=== PATIENT | female | born 1985 | race Caucasian/White ===

== ENCOUNTER 2018-09-14 05:27 | Emergency (ER) | payer SELFPAY ==
[~2018-09-14] VITALS: Ht 149.9 cm; Wt 74.8 kg
--- OUTSIDE RECORDS SUMMARY | 2018-09-14 05:33 | XMS REPORT ---
Author Author KAYLA Ojeda Organization [facility] Address [address] [address] Care Team Providers Care Commercial Carpet Installer Name Role Phone KAYLA Ojeda Unavailable PROBLEMS Type Condition ICD9-CM Code [id number] Code Onset Dates Condition Status SNOMED Code Problem Unspecified episodic mood disorder 296.90 Active 560598218 Problem Encounter for long-term (current) use of other medications V58.69 Active 317333003 ALLERGIES No Information ENCOUNTERS Encounter Location Date Diagnosis [facility] [id number] [place] [phone] Jul, [facility] [id number] [place] [phone] Jul, [facility] [id number] [place] [address] Jul, Epigastric abdominal pain R10.13 [facility] [id number] [place] [address] Jul, [facility] [id number] [place] [address] Jul, [facility] [id number] [place] [phone] Nov, [facility] [id number] [place] [phone] Sep, [facility] [id number] [place] [phone] August, [facility] [id number] [place] [phone] Jun, [id number] [facility] [id number] [place] [address] May, [facility] [address] [facility] [id number], [place] [address] Oct, IMMUNIZATIONS No Known Immunizations SOCIAL HISTORY Never Assessed REASON FOR VISIT Refill request PLAN OF CARE VITAL SIGNS MEDICATIONS Unknown Medications RESULTS No Results PROCEDURES No Known procedures INSTRUCTIONS MEDICATIONS ADMINISTERED No Known Medications MEDICAL (GENERAL) HISTORY Type Description Date Medical History Depression Medical History Anxiety Medical History Kidney Stones
--- OUTSIDE RECORDS SUMMARY | 2018-09-14 05:33 | XMS REPORT ---
Author Author KAYLA Ojeda Organization [facility] Address [address] [address] Care Team Providers Care Armed Security Professional Name Role Phone KAYLA Ojeda Unavailable PROBLEMS Type Condition ICD9-CM Code [id number] Code Onset Dates Condition Status SNOMED Code Problem Unspecified episodic mood disorder 296.90 Active 735781606 Problem Encounter for long-term (current) use of other medications V58.69 Active 339916905 ALLERGIES No Information ENCOUNTERS Encounter Location Date Diagnosis [facility] [id number] [place] [address] Jul, [facility] [id number] [place] [address] Jul, [facility] [id number] [place] [address] Jul, Epigastric abdominal pain R10.13 [facility] [id number] [place] [address] Jul, [facility] [id number] [place] [address] Jul, [facility] [id number] [place] [address] Nov, [facility] [id number] [place] [address] Sep, [facility] [id number] [place] [address] August, [facility] [id number] [place] [address] Jun, [address] [facility] [id number] [place] [address] May, [facility] [address] [facility] [id number] [address] Oct, IMMUNIZATIONS No Known Immunizations SOCIAL HISTORY Never Assessed REASON FOR VISIT PLAN OF CARE VITAL SIGNS MEDICATIONS Medication Instructions Dosage Frequency Start Date End Date Duration Status Ciprofloxacin HCl 250 MG Orally every 12 hrs 1 tablet 12h Jul, Jul, 3 day(s) Active RESULTS No Results PROCEDURES No Known procedures INSTRUCTIONS MEDICATIONS ADMINISTERED No Known Medications MEDICAL (GENERAL) HISTORY Type Description Date Medical History Depression Medical History Anxiety Medical History Kidney Stones
--- OUTSIDE RECORDS SUMMARY | 2018-09-14 05:33 | XMS REPORT ---
Author Author Migration, Doctor Organization [facility] Address Unknown Phone Unavailable Care Team Providers Care Flight Deck Officer Name Role Phone Migration, Doctor Unavailable Unavailable PROBLEMS Type Condition ICD9-CM Code [id number] Code Onset Dates Condition Status SNOMED Code Problem Encounter for long-term (current) use of other medications V58.69 Active 625959992 Problem Unspecified episodic mood disorder 296.90 Active [id number] ALLERGIES No Information ENCOUNTERS Encounter Location Date Diagnosis [facility] [id number] [place] [phone] Jul, [facility] [id number] [place] [phone] Jul, [facility] [id number] [place] [phone] Jul, Epigastric abdominal pain R10.13 [facility] [id number] [place] [phone] Jul, [facility] [id number] [place] [phone] Jul, [facility] [address] [address] Nov, [facility] [id number] [place] [phone] Sep, [facility] [address] [id number] [address] August, [facility] [id number] [place] [phone] Jun, [facility] [address] [address] May, [facility] [id number] [place] [address] Oct, IMMUNIZATIONS No Known Immunizations SOCIAL HISTORY Never Assessed REASON FOR VISIT [facility] PLAN OF CARE VITAL SIGNS MEDICATIONS Unknown Medications RESULTS No Results PROCEDURES No Known procedures INSTRUCTIONS MEDICATIONS ADMINISTERED No Known Medications MEDICAL (GENERAL) HISTORY Type Description Date Medical History Depression Medical History Anxiety Medical History Kidney Stones
--- OUTSIDE RECORDS SUMMARY | 2018-09-14 05:34 | XMS REPORT | Continuity of Care Document ---
Author Organization Unknown Address [address] [place] [address] Care Team Providers Care Animal Nutrition Consultant Name Role Phone Unavailable Unavailable Insurance Providers Payer Name Policy Number Subscriber Name Relationship Self-Pay Self-Pay PIERO CHAVEZ Self Advance Directives Directive Response Recorded Date/Time Advance Directive Information: AD INFO NOT OBTAINABLE 12/18/15 12:24pm Chief Complaint and Reason for Visit Reason for Visit ABD PAIN Problems Active Medical Problems Problem Onset Date Recorded Date Status Ureteral calculus Unknown 12/18/15 Active Medications Current Home Medications Medication Dose Units Route Directions Days/Qty Instructions Start Date MEDICATION RECONCILIATION (Medication Reconciliation) 1 EACH EA 1 EACH BY MOUTH ONE TIME ONLY Alprazolam (Xanax) 0.5 MG TABLET 0.5 MG BY MOUTH FOUR TIMES DAILY Citalopram Hydrobromide (Celexa) 40 MG TABLET 40 MG BY MOUTH DAILY Oxycodone 5 MG W/Actm 325 MG (Percocet 5/325) 1 EA UD.TAB 1 TAB BY MOUTH EVERY 4 HOURS NEEDED PRN PAIN 15 12/18/15 Topiramate (Topamax) 25 MG TABLET 25 MG BY MOUTH TWICE DAILY Social History No social history. Hospital Discharge Instructions No hospital discharge instructions. Plan of Care Discharge Date 12/18/15 Disposition HOME/SELF CARE Condition at Discharge Improved Instructions/Education Provided Kidney Stones -- Adult Prescriptions See Medications Section Referrals [facility] - Functional Status No functional status results. Allergies, Adverse Reactions, Alerts Allergen Type Severity Reaction Status Last Updated NO KNOWN DRUG ALLERGIES Allergy Unknown Active 12/18/15 Immunizations Name Date Given Type *Flu Shot: None Historical *Tetanus Shot: Unknown Historical Vital Signs Vital Reading Collection Date/Time Result Blood Pressure 12/18/15 1:35pm 116/73 Patient Temperature 12/18/15 1:35pm 98.1 Temperature Source 12/18/15 9:40am Temporal Respiratory Rate 12/18/15 1:35pm 16 Pulse Rate 12/18/15 1:35pm 78 Bedside Pulse Oximetry 12/18/15 1:35pm 99 Height 12/18/15 9:40am 4 ft 11 in Weight 12/18/15 9:40am 150 lb Body Mass Index 12/18/15 9:40am 30.[address] [address] ED PHYSICIAN DOCUMENTATION Patient Name: PIERO CHAVEZ : 81 Unit #: [id number] Patient's Service Date: 12/18/15 ED Physician: Joseph Louie DO Primary Physician: History of Present Illness General Chief Complaint Abdominal pain Stated Complaint ABD PAIN Time Seen by Provider 1003 Source patient Exam Limitations no limitations History of Present Illness Initial Comments Sudden onset of RLQ abdominal pain 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 Severe. No prior symptoms. Location abdomen Quality sharp, stabbing Severity severe Duration hours (1) Timing continuous Modifying Factors nothing improves Allergies Coded Allergies: NO KNOWN DRUG ALLERGIES (12/18/15) Home Medications Reported Medications MEDICATION RECONCILIATION (Medication Reconciliation) 1 EACH BY MOUTH ONE Citalopram Hydrobromide (Celexa) 40 MG BY MOUTH DAILY Alprazolam (Xanax) 0.5 MG BY MOUTH QID Topiramate (Topamax) 25 MG BY MOUTH BID Review of Systems Review of Systems Was ROS Completed? Yes Limited By clinical condition Constitutional Denies fever, Denies chills Respiratory Reports cough, Denies short of breath Cardiovascular Denies chest pain, Denies palpitations, Denies syncope Gastrointestinal Reports abdominal pain, Reports nausea, Denies vomiting Genitourinary Reports other (LMP 11/25/15), Reports other (Roberta IUD) Skin Denies change in color Neurological Denies headache, Denies numbness, Denies paresthesia Psychiatric Reports anxiety Past Medical History Past Medical History Medical History denies medical problems Psychosocial History anxiety LMP (females 10-50) 11/25/15 Social History Smoker Current every day smoker Physical Exam Physical Exam Exam Limitations no limitations Nursing Assessment Reviewed Yes Initial Vital Signs Vital Signs Result Date Time Pulse Ox 98 12/17 0940 B/P 167/80 12/18 939 Temp 98.2 12/17 09 Pulse 107 12/17 0940 Resp 28 12/17 0940 (Louie,Joseph R DO) Constitutional well developed, well nourished, severe distress Respiratory no respiratory distress, normal breath sounds Cardiovascular regular rate/rhythm, no murmur Gastrointestinal RLQ tenderness, guarding Skin normal color, warm/dry Neurological probation officer II-XII normal, no motor deficit Psychiatric alert, oriented Results Results Labs Laboratory Tests 12/17 0950 0950 1308 1 308 Chemistry Sodium (135 - 150 mmol/L) 140 Potassium (3.4 - 5.2 mmol/L) 3.7 Chloride (100 - 112 mmol/L) 105 Carbon Dioxide (21 - 33 meq/L) 23 Anion Gap (8 - 16 mmol/L) 12 BUN (5 - 21 mg/dl) 9 Creatinine (0.60 - 1.30 mg/dl) 0.81 GFR Calculation (> 60 mL/Min) > 60 Glucose (70 - 99 mg/dl) 105 H Calcium (8.6 - 10.5 mg/dl) 9.0 Total Bilirubin (0.0 - 1.2 mg/dl) 0.5 AST (6 - 37 U/L) 12 ALT (12 - 78 U/L) 34 Alkaline Phosphatase (46 - 116 U/L) 78 Total Protein (6.4 - 8.2 g/dl) 7.3 Albumin (3.3 - 4.5 g/dl) 3.8 Albumin/Globulin Ratio (0.7 - 2.0) 1.1 Lipase (65 - 230 U/L) 118 Serum HCG, Qual Negative Hematology WBC (4.5 - 11.0 10^3/uL) 17.3 H RBC (3.50 - 5.40 10^6/uL) 4.96 Hgb (12.0 - 16.0 g/dl) 15.2 Hct (36 - 48 %) 44.9 MCV (79 - 99 fL) 90.7 MCH (25.0 - 34.0 pg) 30.7 MCHC (31.0 - 36.0 g/dL) 33.9 RDW (11.0 - 15.0 %) 13.2 Plt Count (130 - 400 10^3/uL) 314 MPV (7.0 - 11.0 fL) 8.8 Neutrophils (Manual) (50 - 65 %) 66 H Neutrophils # (1.0 - 8.0 #) 12.3 H Band Neutrophils (0 - 10 %) 5 Lymphocytes (Manual) (15 - 45 %) 22 Lymphocytes # (1.0 - 3.0 #) 3.8 H Monocytes (Manual) (0 - 10 %) 5 Monocytes # (0.0 - 1.0 #) 0.9 Eosinophils # (0.0 - 0.4 #) 0.0 Basophils # (0.0 - 0.2 #) 0.0 Atypical Lymphocytes (0 - 5 %) 2 Urines Urine Color Pending Urine Appearance Pending Urine pH Pending Ur Specific [place] Pending Urine Protein Pending Urine Ketones Pending Urine Blood Pending Urine Nitrate Pending Urine Bilirubin Pending Urine Urobilinogen Pending Ur Leukocyte Esterase Pending Urine Glucose Pending Urine HCG, Qual Progress Note Medications Medications Medications Given in ED Sig/Iris Start time Last Medication Dose Route Stop Time Status Admin/ Admin Dose Ketorolac 30 MG X1ED STA 12/17 1144 DC 12/17 Tromethamine IV 12/17 1145 1156 (Toradol) 30 MG Ondansetron HCl 4 MG ONE ONE 12/17 1000 DC 12/17 (Zofran) IV 12/17 1001 1009 4 MG Prochlorperazine 5 MG ONE ONE 12/17 1040 DC 12/17 Maleate IV 12/17 1041 1047 (Compazine) 5 MG Sodium Chloride 1,000 ML .Q1H 12/17 1221 DC 12/17 (0.9% Sodium IV 12/17 1320 1231 Chloride) 1,000 MLS PRN Medications Given in ED Sig/Iris Start time Last Medication Dose Route Stop Time Status Admin/ Admin Dose Hydromorphone HCl 1 MG X1EDMR PRN 12/17 1031 AC 12/17 (Dilaudid*) IV 12/18 1032 1035 1 MG Hydromorphone HCl 1 MG X1EDMR PRN 12/17 1001 AC 12/17 (Dilaudid*) IV 12/18 1002 1009 1 MG Lorazepam 1 MG X1EDMR PRN 12/17 1101 CKD 12/17 (Ativan) IV 1112 1 MG Progress Note Progress Note Time 1228 Progress Note Pain much improved with the Toradol. Departure Departure Clinical Impression Primary Impression: Ureteral calculus Time of Disposition 1323 Disposition HOME/SELF CARE Condition Improved Smoking Education Indicated Yes Patient Instructions Kidney Stones -- Adult Referrals [facility] Prescriptions Current Visit Scripts Oxycodone 5 MG W/Actm 325 MG (Percocet 5/325) 1 TAB BY MOUTH Q4H PRN PRN PAIN #15 TAB Joseph Louie DO Electronically Signed 12/18/15 1327 Procedures No Known History of Procedures. Encounters Encounter Location Arrival/Admit Date Discharge/Depart Date Attending Provider Departed Emergency [facility] 12/18/15 9:35am 12/18/15 1:35pm Joseph Louie DO Encounter Diagnosis Calculus of ureter
--- OUTSIDE RECORDS SUMMARY | 2018-09-14 05:34 | XMS REPORT | Continuity of Care Document ---
Demographics Preferred Language Unknown Marital Status Unknown Tenriism Affiliation Unknown Race Unknown Ethnic Group Unknown Author Organization Unknown Address Unknown Allergies Active Description Code Type Severity Reaction Onset Reported/Identified Relationship to Patient Clinical Status Yes Codeine Drug Allergy N/A N/A 07/07/2012 Yes Hydrocodone Drug Allergy N/A N/A 07/07/2012 Yes Codeine Drug Allergy 07/07/2012 Yes Hydrocodone Drug Allergy 07/07/2012 Medications Medication Packaging Start Date Stop Date Route Dosage Sig Alprazolam MG 12/18/2015 12/18/2015 0.5 QID Topiramate MG 12/18/2015 12/18/2015 25 BID Oxycodone 5 MG W/Actm 325 MG TAB 12/18/2015 12/17/2016 1 Q4H PRN MEDICATION RECONCILIATION EACH 12/18/2015 12/18/2015 1 ONE Citalopram Hydrobromide MG 12/18/2015 12/18/2015 40 DAILY Problems Date Dx Coded Attending Type Code Diagnosis Diagnosed By 09/20/2009 599.0 URINARY TRACT INFECTION 09/20/2009 599.0 URINARY TRACT INFECTION 09/20/2009 599.0 URINARY TRACT INFECTION 09/20/2009 599.0 URINARY TRACT INFECTION 07/07/2012 296.90 MOOD DISORDER NOS 07/07/2012 V58.69 MEDICATION HIGH RISK 07/07/2012 296.90 MOOD DISORDER NOS 07/07/2012 V58.69 MEDICATION HIGH RISK 07/07/2012 296.90 MOOD DISORDER NOS 07/07/2012 V58.69 MEDICATION HIGH RISK 2015 Joseph Louie DO F17.200 Nicotine dependence, unspecified, uncomplicated Joseph Louie DO R 2015 Joseph Louie DO F41.9 Anxiety disorder, unspecified Joseph Louie DO R 2015 Joseph Louie DO N20.1 Calculus of ureter Joseph Louie DO 2015 Joseph Louie DO Z79.899 Other ocean transportation intermediary (current) drug therapy Joseph Louie DO Procedures Code Description [place] [address] PSYCH DIAG EVAL W/MED SRVCS 07/11/2012 Results Test Result Range CBC WITH MANUAL DIFFERENTIAL - 12/18/15 09:50 HEMOGLOBIN 15.2 g/dl 12.0-16.0 PLATELET COUNT 314 10 3/uL 130-400 WHITE BLOOD CELL COUNT 17.3 10 3/uL 4.5-11.0 RED BLOOD CELL 4.96 10 6/uL 3.50-5.40 HEMATOCRIT 44.9 % 36-48 MEAN CORPUSCULAR VOLUME 90.7 fL 79-99 MEAN CORPUSCULAR HEMOGLOBIN 30.7 pg 25.0-34.0 MEAN CELL HEMOGLOBIN CONC. 33.9 g/dL 31.0-36.0 RED CELL DISTRIBUTION WIDTH 13.2 % 11.0-15.0 MEAN PLATELET VOLUME 8.8 fL 7.0-11.0 CBC WITH MANUAL DIFFERENTIAL - 12/18/15 09:50 ABSOLUTE NEUTROPHIL COUNT 12.3 # 1.0-8.0 HEMOGLOBIN 15.2 g/dl 12.0-16.0 PLATELET COUNT 314 10 3/uL 130-400 WHITE BLOOD CELL COUNT 17.3 10 3/uL 4.5-11.0 LYMPHOCYTE# 3.8 # 1.0-3.0 MONOCYTE# 0.9 # 0.0-1.0 EOSINOPHIL# 0.0 # 0.0-0.4 BASOPHIL# 0.0 # 0.0-0.2 SEGS 66 % 50-65 BANDS 5 % 0-10 LYMPHS 22 % 15-45 MONOS 5 % 0-10 ATYP LYMPHS 2 % 0-5 RED BLOOD CELL 4.96 10 6/uL 3.50-5.40 HEMATOCRIT 44.9 % 36-48 MEAN CORPUSCULAR VOLUME 90.7 fL 79-99 MEAN CORPUSCULAR HEMOGLOBIN 30.7 pg 25.0-34.0 MEAN CELL HEMOGLOBIN CONC. 33.9 g/dL 31.0-36.0 RED CELL DISTRIBUTION WIDTH 13.2 % 11.0-15.0 MEAN PLATELET VOLUME 8.8 fL 7.0-11.0 COMP METABOLIC PROFILE - 12/18/15 09:50 ALBUMIN 3.8 g/dl 3.3-4.5 ALKALINE PHOSPHATASE 78 U/L 46-116 ANION GAP 12 mmol/L 8-16 BILIRUBIN TOTAL 0.5 mg/dl 0.0-1.2 GLUCOSE 105 mg/dl 70-99 BUN 9 mg/dl 5-21 CALCIUM 9.0 mg/dl 8.6-10.5 CHLORIDE 105 mmol/L 100-112 CARBON DIOXIDE 23 meq/L 21-33 AST/GOT 12 U/L 6-37 ALT/GPT 34 U/L 12-78 POTASSIUM 3.7 mmol/L 3.4-5.2 SODIUM 140 mmol/L 135-150 TOTAL PROTEIN 7.3 g/dl 6.4-8.2 CREATININE 0.81 mg/dl 0.60-1.30 GFR ESTIMATE > 60 mL/Min > 60 AG RATIO 1.1 0.7-2.0 LIPASE - 12/18/15 09:50 LIPASE 118 U/L 65-230 HCG Qual Serum - 12/18/15 09:50 HCG Qual Serum Negative HCG URINE - 12/18/15 13:08 HCG URINE Negative URINE WITH MICRO-CULT IND. - 12/18/15 13:08 APPEARANCE Sl Cloudy Clear GLUCOSE Negative Negative BILIRUBIN Negative Negative KETONE Negative Negative SPECIFIC GRAVIT 1.010 1.010-.025 PH 5.0 4.5 - 7.5 PROTEIN Negative Negative UROBILINOGEN 0.2 <=1.0 NITRITE Negative Negative BLOOD 2+ Negative LEUKOCYTES 1+ Negative URINE CULTURE R Clt Set URINE MICROSCOP Microscopic Results RBC O - 2 0 - 5 EPITHELIAL CELL > 25 5 - 10 COLOR Yellow Yellow WBC 10 - 25 0 - 5 BACTERIA Trace Trace URINE CULTURE INDICATED - 12/18/15 13:08 URINE CULTURE INDICATED CFU/ML URINE CULTURE INDICATED CFU/ML Encounters ACCT No. Visit Date/Time Discharge Status Pt. Type Provider Facility Loc./Unit Complaint [id number] 07/07/2012 07:58:00 07/07/2012 23:59:59 CLS Outpatient [id number] 09/20/2009 13:32:00 09/20/2009 23:59:59 CLS Outpatient [id number] 10/11/2012 12:30:00 Document Registration [id number] 07/07/2012 07:58:00 Document Registration [id number] 12/18/2015 09:37:00 12/18/2015 13:35:00 DIS Emergency [facility], Joseph Cooper [facility] ED
--- OUTSIDE RECORDS SUMMARY | 2018-09-14 05:34 | XMS REPORT ---
Author Author KAYLA Ojeda Organization [facility] Address [address] [address] Care Team Providers Care Automatic Coil Machine Operator Name Role Phone KAYLA Ojeda Unavailable PROBLEMS Type Condition ICD9-CM Code QTB59-VU Code Onset Dates Condition Status SNOMED Code Problem Unspecified episodic mood disorder 296.90 Active 203561842 Problem Encounter for long-term (current) use of other medications V58.69 Active 382992181 ALLERGIES No Known Allergies ENCOUNTERS Encounter Location Date Diagnosis [facility] [id number] [place] [phone] Jul, [facility] [id number] [place] [address] Jul, [facility] [id number] [place] [address] Jul, Epigastric abdominal pain R10.13 [facility] [id number] [place] [address] Jul, [facility] [id number] [place] [phone] Jul, [facility] [id number] [place] [phone] Nov, [facility] [id number] [place] [phone] Sep, [facility] [id number] [place] [phone] August, [facility] [id number] [place] [phone] Jun, [facility] [address] [facility] 3[facility] [id number] [place] [address] May, [facility] [address] [facility]NOTE 3] [id number] [address] Oct, IMMUNIZATIONS No Known Immunizations SOCIAL HISTORY Never Assessed REASON FOR VISIT Abdominal pain--Jacinta, Went [facility] and the provider did a CT and said pt's liver was swollen, Patient is concerned due to family history PLAN OF CARE Activity Details Follow Up 1 Week Reason:female physical VITAL SIGNS Height 59 in 2017-08-12 Weight 153.8 lbs 2017-08-12 Temperature 97.8 degrees Fahrenheit 2017-08-12 Heart Rate 80 bpm 2017-08-12 Respiratory Rate 20 2017-08-12 BMI 31.06 kg/m2 2017-08-12 Blood pressure systolic 116 mmHg 2017-08-12 Blood pressure diastolic 84 mmHg 2017-08-12 MEDICATIONS Medication Instructions Dosage Frequency Start Date End Date Duration Status Celexa 40 MG Orally Once a day 0.5 tablet 24h Active Xanax 0.5 MG Orally Twice a day 1 tablet 12h Active Ibuprofen 800 MG Orally Three times a day 1 tablet with food or milk as needed 8h Active Pantoprazole Sodium 40 mg Orally Once a day 30 mins before food 1 tablet Jul, 30 day(s) Active RESULTS No Results PROCEDURES Procedure Date Ordered Result Body Site ASSAY OF AMYLASE August 12, 2017 COMPLETE CBC W/AUTO DIFF WBC August 12, 2017 HEP B CORE ANTIBODY, TOTAL August 12, 2017 HEP B CORE ANTIBODY, IGM August 12, 2017 ASSAY OF LIPASE August 12, 2017 HEPATITIS C AB TEST August 12, 2017 COMPREHEN METABOLIC PANEL August 12, 2017 IMMUNOASSAY,INFECTIOUS AGENT August 12, 2017 HEPATITIS B SURFACE AG, EIA August 12, 2017 INSTRUCTIONS MEDICATIONS ADMINISTERED No Known Medications MEDICAL (GENERAL) HISTORY Type Description Date Medical History Depression Medical History Anxiety Medical History Kidney Stones
[2018-09-14] MEDS ORDERED: CITA40TA11 (05:41)
[2018-09-14] MEDS ORDERED: ALPR0.5T7 (05:41)
[2018-09-14] MEDS ORDERED: METH4TAB PO ×2 (05:45→05:53)
[2018-09-14] MEDS ORDERED: KETOROLAC 60 MG/2 ML VIAL IM ONE (05:45)
[2018-09-14] MEDS ORDERED: CYCL10TA9 PO ×2 (05:45→05:53)
--- NOTE | 2018-09-14 05:46 | ED Upper Extremity ---
General Chief Complaint: Upper Extremity Stated Complaint: LEFT SHOULDER PAIN Source: patient History of Present Illness Date Seen by Provider: September 14, 2018 Time Seen by Provider: 05:35 Initial Comments PT ARRIVES VIA POV FROM HOME C/O PAIN TO LEFT POSTERIOR SHOULDER AREA SINCE WAKING YESTERDAY AM NO KNOWN INJURY OR UNUSUAL ACTIVITY, NO HEAVY LIFTING, ETC. NO RADIATION OF PAIN NO PARESTHESIAS OR MOTOR DEFICITS NO CHEST PAIN OR SHORTNESS OF BREATH TOOK IBUPROFEN AT 2100 LAST PM, AND HAS APPLIED ICE AND HEAT WITHOUT RELIEF NO HISTORY OF SIMILAR PCP: NONE CURRENTLY, DID HAVE ONE IN [facility] Allergies and Home Medications Allergies Coded Allergies: No Known Drug Allergies (Unverified , 09/14/18) Home Medications Cyclobenzaprine HCl 10 Mg Tablet, 10 MG PO Q8H Prescribed by: DONG CARBAJAL on 09/14/1853 Methylprednisolone 4 Mg Tab.ds.pk, 4 MG PO UD Prescribed by: DONG CARBAJAL on 09/14/18 0553 Patient Home Medication List Home Medication List Reviewed: Yes Review of Systems Constitutional: no symptoms reported EENTM: no symptoms reported Respiratory: no symptoms reported Cardiovascular: no symptoms reported Gastrointestinal: no symptoms reported Genitourinary: no symptoms reported LMP: August 24, 2018 Control/STD Prophylaxis: IUD (MIRENA) Musculoskeletal: see HPI Skin: no symptoms reported; No rash Psychiatric/Neurological: No Symptoms Reported Past Skzvsph-Skamyd-Pbeibc Hx Patient Social History Alcohol Use: Past History (HISTORY OF ABUSE--STATES SHE USED TO DRINK 1/5 OF LIQUOR A DAY, CLAIMS NONE SINCE 2018) Recreational Drug Use: Yes (HX OF METH USE, DENIES IV USE--STATES SHE SMOKED IT) Drug of Choice: HX OF METH USE, DENIES IV USE-STATES SHE SMOKED IT Smoking Status: Current Everyday Smoker (1 PPD) Type Used: Cigarettes (1 PPD) Recent Foreign Travel: No Contact w/Someone Who Travel: No Past Medical History Surgeries: No Respiratory: No Cardiac: No Neurological: No ROLFER History: 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 oz. kg; BMI Method: General Appearance: WD/WN, no apparent distress HEENT: PERRL/EOMI Neck: non-tender, full range of motion, supple, normal inspection Cardiovascular: normal peripheral pulses, regular rate, rhythm, no edema, no JVD, no murmur Respiratory: chest non-tender, normal breath sounds, no respiratory distress, no accessory muscle use Gastrointestinal: normal bowel sounds, non tender, soft Back: other (TENDERNESS AND MILD SPASMS TO LEFT TRAPEZIUS MUSCLE AND ESPECIALLY TENDER ALONG SUPERIOR ASPECT OF LEFT SCAPULAR AREA. PALPATION DRAMATICALLY REPR ODUCES PAIN) Shoulder: normal inspection, non-tender, no evidence of injury, normal ROM Elbow/Forearm: normal inspection, non-tender, no evidence of injury, normal ROM Wrist: Yes normal inspection, Yes non-tender, Yes no evidence of injury, Yes normal ROM Hand: normal inspection, non-tender, no evidence of injury, normal ROM Neurologic/Tendon: normal sensation, normal motor functions, normal tendon functions Neurologic/Psychiatric: instructor product inspection II-XII nml as tested, no motor/sensory deficits, alert, normal mood/affect, oriented x 3 Skin: normal color, warm/dry; No rash; tattoos/piercings (MULTIPLE TATTOOS) Progress/Results/Core Measures Results/Orders My Orders Orders - DONG CARBAJAL DO Ketorolac Injection (Toradol Injection) (09/14/18 05:45) Medications Given in ED Vital Signs/I&O Departure Impression Primary Impression: LEFT TRAPEZIUS MUSCLE PAIN Disposition: 01 HOME, SELF-CARE Condition: Stable Departure-Patient Inst. Referrals: NO,LOCAL PHYSICIAN (PCP/Family) Primary Care Physician Patient Instructions: Muscle Strain (DC) Add. Discharge Instructions: MOIST HEAT TO AREA AT 20 MINUTE INTERVALS NO LIFTING OVER 5 LBS WITH RIGHT ARM, NO OVER HEAD WORK UNTIL YOU ARE BETTER FOLLOW UP WITH DRStephen OF CHOICE IN 3-4 DAYS IF NO BETTER All discharge instructions reviewed with patient and/or family. Voiced understanding. Scripts Cyclobenzaprine HCl (Cyclobenzaprine HCl) 10 Mg Tablet 10 MG PO Q8H, #15 TAB Prov: DONG CARBAJAL DO 09/14/18 Methylprednisolone (Medrol) 4 Mg Tab.ds.pk 4 MG PO UD, #1 PKG Prov: DONG CARBAJAL DO 09/14/18 Images Torso/Trunk 1 - Tenderness DONG CARBAJAL DO September 14, 2018 05:46
[2018-09-14 05:52] VITALS: BP 100/78
== END 2018-09-14 05:52 | disposition home or self-care (01) ==
LOC: EDUNIT# 05:27 → ER 05:30
DX: M79.18 Myalgia, other site (principal); F41.9 Anxiety disorder, unspecified; F32.9 Major depressive disorder, single episode, unspecified; F17.210 Nicotine dependence, cigarettes, uncomplicated
CPT/HCPCS: 99284

== ENCOUNTER 2018-12-03 23:18 | Emergency (ER) | payer MEDICAID, OTHER ==
[~2018-12-03] VITALS: Ht 152.4 cm; Wt 71.2 kg
[~2018-12-03 23:18] MED LIST: ALPR0.5T7; CITA40TA11; CYCL10TA9 PO; METH4TAB PO
--- OUTSIDE RECORDS SUMMARY | 2018-12-03 23:25 | XMS REPORT ---
Author Author Migration, Doctor Organization [facility] Address Unknown Phone Unavailable Care Team Providers Care Hvac Mechanic Name Role Phone Migration, Doctor Unavailable Unavailable PROBLEMS Type Condition ICD9-CM Code [id number] Code Onset Dates Condition Status SNOMED Code Problem Encounter for long-term (current) use of other medications V58.69 Active 005159754 Problem Unspecified episodic mood disorder 296.90 Active 507605825 ALLERGIES Substance Reaction Event Type Date Status Codeine Unknown Drug Allergy Jul, Active Hydrocodone Unknown Non Drug Allergy Jul, Active ENCOUNTERS Encounter Location Date Diagnosis [facility] [id number] [address] Oct, [facility] [id number] [place] [phone] Oct, [facility] [id number] [place] [phone] Oct, [facility] [id number] [place] [phone] Sep, [facility] [id number] [address] August, [facility] [id number] [place] [phone] Jul, [facility] [id number] [place] [phone] Jul, [facility] [id number] [place] [phone] Jul, Epigastric abdominal pain R10.13 [facility] [id number] [address] Jul, [facility] [id number] [place] [phone] Jul, [facility] [address] [facility] [id number] [address] Nov, [facility] [id number] [address] Sep, [facility] [id number] [address] August, [facility] [id number] [address] Jun, [facility] [address] [facility] [id number] [address] May, [facility] [id number], [place] [address] Oct, IMMUNIZATIONS No Known Immunizations SOCIAL HISTORY Never Assessed REASON FOR VISIT EMR[place]AN OF CARE VITAL SIGNS MEDICATIONS Medication Instructions Dosage Frequency Start Date End Date Duration Status HydrOXYzine HCl 50 mg 1-2 Capsules by Oral route 1-2 times per day PRN for anxiety and stress. Sep, Active trazodone 150 mg 1 Tablet by Oral route 1 time per day at bedtime for sleep Sep, Active Celexa 20 mg 1 Tablet by Oral route 1 time per day for anxiety and depression Sep, Active RESULTS No Results PROCEDURES No Known procedures INSTRUCTIONS MEDICATIONS ADMINISTERED No Known Medications MEDICAL (GENERAL) HISTORY Type Description Date Medical History Depression Medical History Anxiety Medical History Kidney Stones
--- OUTSIDE RECORDS SUMMARY | 2018-12-03 23:25 | XMS REPORT | Continuity of Care Document ---
Author Organization Unknown Address Unknown Phone Unavailable Allergies Active Description Code Type Severity Reaction Onset Reported/Identified Relationship to Patient Clinical Status Yes Codeine Drug Allergy N/A N/A 07/07/2012 Yes Hydrocodone Drug Allergy N/A N/A 07/07/2012 Yes Codeine Drug Allergy 07/07/2012 Yes Hydrocodone Drug Allergy 07/07/2012 Yes No Known Drug Allergies [id number] Drug Allergy Unknown N/A 09/14/2018 Medications There is no data. Problems Date Dx Coded Attending Type Code Diagnosis Diagnosed By 09/20/2009 599.0 URINARY TRACT INFECTION 09/20/2009 599.0 URINARY TRACT INFECTION 09/20/2009 599.0 URINARY TRACT INFECTION 09/20/2009 599.0 URINARY TRACT INFECTION 07/07/2012 296.90 MOOD DISORDER NOS 07/07/2012 V58.69 MEDICATION HIGH RISK 07/07/2012 296.90 MOOD DISORDER NOS 07/07/2012 V58.69 MEDICATION HIGH RISK 07/07/2012 296.90 MOOD DISORDER NOS 07/07/2012 V58.69 MEDICATION HIGH RISK 09/16/2018 DONG CARBAJAL DO Ot F17.210 NICOTINE DEPENDENCE, CIGARETTES, UNCOMPL 09/16/2018 DONG CARBAJAL DO Ot F32.9 MAJOR DEPRESSIVE DISORDER, SINGLE EPISOD 09/16/2018 DONG CARBAJAL DO Ot F41.9 ANXIETY DISORDER, UNSPECIFIED 09/16/2018 DONG CARBAJAL DO Ot M25.512 PAIN IN LEFT SHOULDER 09/16/2018 DONG CARBAJAL DO Ot M79.18 MYALGIA, OTHER SITE Procedures Code [place] [address] PSYCH DIAG EVAL W/MED SRVCS 07/11/2012 Results There is no data. Encounters ACCT No. Visit Date/Time Discharge Status Pt. Type Provider Facility Loc./Unit Complaint [id number] 10/17/2018 10:30:00 10/17/2018 23:59:59 [facility] Outpatient W[facility]FGANG MATHIS LAC [facility] [id number] 07/07/2012 07:58:00 07/07/2012 23:59:59 [facility] Outpatient [id number] 09/20/2009 13:32:00 09/20/2009 23:59:59 [facility] Outpatient [id number] 10/11/2012 12:30:00 Document Registration [id number] 07/07/2012 07:58:00 Document Registration [id number] 09/14/2018 05:30:00 09/14/2018 05:52:00 DIS Outpatient DONG CARBAJAL DO [facility] LEFT SHOULDER PAIN
--- OUTSIDE RECORDS SUMMARY | 2018-12-03 23:25 | XMS REPORT ---
Author Author Migration, Doctor Organization [facility] Address Unknown Phone Unavailable Care Team Providers Care Due Diligence Coordinator Name Role Phone Migration, Doctor Unavailable Unavailable PROBLEMS Type Condition ICD9-CM Code [id number] Code Onset Dates Condition Status SNOMED Code Problem Encounter for long-term (current) use of other medications V58.69 Active [id number] Problem Unspecified episodic mood disorder 296.90 Active 199920202 ALLERGIES No Information ENCOUNTERS Encounter Location Date Diagnosis [facility] [id number] [place] [phone] Sep, [facility] [id number] [place] [phone] August, [facility] [id number] [place] [phone] Jul, [facility] [id number] [place] [address] Jul, [facility] [id number] [place] [address] Jul, Epigastric abdominal pain R10.13 [facility] [id number] [place] [address] Jul, [facility] [id number] [place] [address] Jul, [facility] [id number] [place] [phone] Nov, [facility] [id number] [place] [phone] Sep, [facility] [id number] [place] [phone] August, [facility] [id number] [place] [address] Jun, [facility] [address] [facility] [id number] [place] [address] May, [facility] [address] [facility] [id number] [address] Oct, IMMUNIZATIONS No Known Immunizations SOCIAL HISTORY Never Assessed REASON FOR VISIT PLAN OF CARE VITAL SIGNS MEDICATIONS Unknown Medications RESULTS No Results PROCEDURES No Known procedures INSTRUCTIONS MEDICATIONS ADMINISTERED No Known Medications MEDICAL (GENERAL) HISTORY Type Description Date Medical History Depression Medical History Anxiety Medical History Kidney Stones
--- NOTE | 2018-12-03 23:28 | ED Respiratory ---
General Chief Complaint: Respiratory Problems Stated Complaint: SOB Source: patient, family Exam Limitations: clinical condition History of Present Illness Date Seen by Provider: Dec 03, 2018 Time Seen by Provider: 23:19 Initial Comments 32-year-old female who became dyspneic and having carpopedal spasm tonight. Her onset of symptoms corresponded with the stressful event although they are reluctant to tell me what it was. She has not had any chest pain associated. No pleuritic component of discomfort. She notes more carpopedal spasm on the left than the right. No history of hemoptysis. She does smoke. No history of previous similar symptoms. No fever or chills reported. Timing/Duration: just prior to arrival Severity: moderate Prior Episodes/Possible Cause: no prior episodes Modifying Factors: Improves With Albuterol Nebulizer (minimal assistance) Associated Symptoms: dizziness, muscle aches, shortness of breath Allergies and Home Medications Allergies Coded Allergies: No Known Drug Allergies (Unverified , 09/14/18) Home Medications Cyclobenzaprine HCl 10 Mg Tablet, 10 MG PO Q8H Prescribed by: DONG CARBAJAL on 09/14/18 0553 Methylprednisolone 4 Mg Tab.ds.pk, 4 MG PO UD Prescribed by: DONG CARBAJAL on 09/14/18 0553 Patient Home Medication List Home Medication List Reviewed: Yes Review of Systems Review of Systems Constitutional: malaise, weakness EENTM: no symptoms reported Respiratory: see HPI Cardiovascular: see HPI Gastrointestinal: no symptoms reported Genitourinary: no symptoms reported Musculoskeletal: no symptoms reported Skin: no symptoms reported Psychiatric/Neurological: See HPI, Anxiety Hematologic/Lymphatic: No Symptoms Reported Immunological/Allergic: no symptoms reported Past Hcsdgkk-Vuuwri-Jxoyyo Hx Past Med/Social Hx: Reviewed Nursing Past Med/Soc Hx Patient Social History Drug of Choice: HX OF METH USE, DENIES IV USE-STATES SHE SMOKED IT Type Used: Cigarettes 2nd Hand Smoke Exposure: Yes Recent Hopitalizations: No Seasonal Allergies Seasonal Allergies: No Past Medical History Surgeries: No Respiratory: No Cardiac: No Neurological: No 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 oz. 74.740415st; BMI Method:Stated General Appearance: WD/WN, mild distress (anxious), obese Eyes: Bilateral Eye Normal Inspection, Bilateral Eye PERRL, Bilateral Eye EOMI HEENT: PERRL/EOMI, normal ENT inspection, TMs normal, pharynx normal (except patient edentulous) Neck: non-tender, full range of motion, supple, normal inspection Respiratory: chest non-tender, no respiratory distress, no accessory muscle use, decreased breath sounds, rhonchi Cardiovascular: regular rate, rhythm, no edema, no gallop, no JVD, no murmur Gastrointestinal: normal bowel sounds, non tender, soft, no organomegaly, no pulsatile mass Extremities: normal range of motion, non-tender, normal inspection, no pedal edema, no calf tenderness, normal capillary refill Neurologic/Psychiatric: instructional systems specialist II-XII nml as tested, no motor/sensory deficits, alert, normal mood/affect, oriented x 3 Skin: normal color, warm/dry Lymphatic: no adenopathy Progress/Results/Core Measures Suspected Sepsis SIRS Temperature: Pulse: Respiratory Rate: Laboratory Tests 12/03/18 23:29: White Blood Count 13.0H Blood Pressure / Mean: Laboratory Tests 12/03/18 23:29: Creatinine 0.88, Platelet Count 397, Total Bilirubin 0.8 Results/Orders Lab Results Laboratory Tests Test 12/03/18 23:29 Range/Units White Blood Count 13.0 H 4.3-11.0 10^3/uL Red Blood Count 4.53 4.35-5.85 10^6/uL Hemoglobin 14.1 11.5-16.0 G/DL Hematocrit 41 35-52 % Mean Corpuscular Volume 90 80-99 FL Mean Corpuscular Hemoglobin 31 25-34 PG Mean Corpuscular Hemoglobin Concent 35 32-36 G/DL Red Cell Distribution Width 13.1 10.0-14.5 % Platelet Count 397 130-400 10^3/uL Mean Platelet Volume 10.1 7.4-10.4 FL Neutrophils (%) (Auto) 54 42-75 % Lymphocytes (%) (Auto) 35 12-44 % Monocytes (%) (Auto) 8 0-12 % Eosinophils (%) (Auto) 2 0-10 % Basophils (%) (Auto) 1 0-10 % Neutrophils # (Auto) 7.0 1.8-7.8 X 10^3 Lymphocytes # (Auto) 4.6 H 1.0-4.0 X 10^3 Monocytes # (Auto) 1.1 H 0.0-1.0 X 10^3 Eosinophils # (Auto) 0.2 0.0-0.3 10^3/uL Basophils # (Auto) 0.1 0.0-0.1 10^3/uL D-Dimer 0.61 H 0.00-0.49 UG/ML Sodium Level 141 135-145 MMOL/L Potassium Level 3.2 L 3.6-5.0 MMOL/L Chloride Level 103 98-107 MMOL/L Carbon Dioxide Level 19 L 21-32 MMOL/L Anion Gap 19 H 5-14 MMOL/L Blood Urea Nitrogen 13 7-18 MG/DL Creatinine 0.88 0.60-1.30 MG/DL Estimat Glomerular Filtration Rate > 60 BUN/Creatinine Ratio 15 Glucose Level 105 70-105 MG/DL Calcium Level 9.8 8.5-10.1 MG/DL Corrected Calcium 9.4 8.5-10.1 MG/DL Total Bilirubin 0.8 0.1-1.0 MG/DL Aspartate Amino Transf (AST/SGOT) 15 5-34 U/L Alanine Aminotransferase (ALT/SGPT) 27 0-55 U/L Alkaline Phosphatase 77 40-136 U/L Troponin I < 0.30 <0.30 NG/ML Total Protein 7.4 6.4-8.2 GM/DL Albumin 4.5 3.2-4.5 GM/DL Serum Test, Qualitative NEGATIVE NEGATIVE My Orders Orders - TONIA DARBY MD Cbc With Automated Diff (12/03/18 23:) Comprehensive Metabolic Panel (12/03/18 23:26) Chest 1 View Ap/Pa Only (12/03/18 23:26) Ekg Tracing (12/03/18 23:26) O2 (12/03/18 23:26) Ed Iv/Invasive Line Start (12/03/18 23:) Monitor-Rhythm Ecg Trace Only (12/03/18 23:26) Troponin I (12/03/18 23:26) Hcg,Qualitative Serum (12/03/18 23:28) Fibrin Degradation Products (12/03/18 23:28) Ua Culture If Indicated (12/03/18 23:28) Drug Screen Stat (Urine) (12/03/18 23:28) Lorazepam Injection (Ativan Injection) (12/03/18 23:45) Ns Iv 1000 Ml (Sodium Chloride 0.9%) (12/04/18 00:15) Medications Given in ED Current Medications Medications Dose Ordered Sig/Iris Route Start Time Stop Time Status Last Admin Dose Admin Lorazepam 1 mg ONCE ONCE IVP 12/03/18 23:45 12/03/18 23:46 DC 12/03/18 23:50 1 MG Vital Signs/I&O 12/03/18 12/03/18 23:40 23:59 Temp 97.6 Pulse 92 B/P (MAP) 115/79 (91) Pulse Ox 84 O2 Delivery Room Air Nasal Cannula O2 Flow Rate 3.00 FiO2 94 Capillary Refill : Progress Note : Time: 01:01 Progress Note Patient symptoms have resolved after dose of Ativan. I had a long discussion with her concerning the findings. I explained that the d-dimer was slightly elevated and this could represent a blood clot in her lung or elsewhere. They understand this but refused CT pulmonary angiogram because of her improvement. She's had normal vital signs, normal heart rate and O2 saturation in the upper 90s on room air. I explained to them that this was their decision to make but there could be negative consequences if in fact this lab finding represented a pulmonary embolus. They voiced understanding and acceptance of this. They're alert, oriented and fully capable of making this decision. ECG Initial ECG Impression Date: Dec 03, 2018 Initial ECG Impression Time: 23:37 Initial ECG Rhythm: Normal Sinus Initial ECG Intervals: Normal Initial ECG Impression: Normal Initial ECG Comparisson: No Previous ECG Available Diagnostic Imaging Diagonstic Imaging: Xray Plain Films/CT/US/NM/MRI: chest Comments CXR: No acute changes. JDO Counseling-Symptomatic: 3-10 Minutes Follow-up with PCP to: Discuss Further Options Departure Impression Primary Impression: Anxiety attack Additional Impressions: Depression Qualified Codes: F32.9 - Major depressive disorder, single episode, unspecified Dehydration Disposition: HOME, SELF-CARE Condition: Improved Departure-Patient Inst. Decision time for Depature: 01:04 Referrals: NO,LOCAL PHYSICIAN (PCP/Family) Primary Care Physician 2-3 days, sooner as needed Patient Instructions: Anxiety, Adult (DC), Panic Disorder (DC) Add. Discharge Instructions: Return to ER if sx worsen again. Recommended smoking cessation. All discharge instructions reviewed with patient and/or family. Voiced understanding. TONIA DARBY MD Dec 03, 2018 23:28
[2018-12-03 23:43] LABS: BASOPHILS # (AUTO) 0.1 10^3/uL (0.0-0.1); BASOPHILS % (AUTO) 1 % (0-10); EOSINOPHILS # (AUTO) 0.2 10^3/uL (0.0-0.3); EOSINOPHILS % (AUTO) 2 % (0-10); HEMATOCRIT 41 % (35-52); HEMOGLOBIN 14.1 G/DL (11.5-16.0); LYMPHOCYTES # (AUTO) 4.6 X 10^3 (1.0-4.0); LYMPHOCYTES % (AUTO) 35 % (12-44); MEAN CORPUSCULAR HEMOGLOBIN 31 PG (25-34); MEAN CORPUSCULAR HGB CONC 35 G/DL (32-36); MEAN CORPUSCULAR VOLUME 90 FL (80-99); MEAN PLATELET VOLUME 10.1 FL (7.4-10.4); MONOCYTES # (AUTO) 1.1 X 10^3 (0.0-1.0); MONOCYTES % (AUTO) 8 % (0-12); NEUTROPHILS % (AUTO) 54 % (42-75); PLATELET COUNT 397 10^3/uL (130-400); RED CELL DISTRIBUTION WIDTH 13.1 % (10.0-14.5)
[2018-12-03] MEDS ORDERED: LORazepam INJ 2 MG/ML (ATIVAN) VIAL IVP ONE (23:45)
--- NOTE | 2018-12-03 23:46 | NUR ---
ATTEMPTED TO GET A UA BUT PT WAS UNABLE TO VOID AT THIS TIME.
--- NOTE | 2018-12-03 23:48 | NUR ---
PT. REPORTED TAKING 10 MG. MELATONIN TO HELP HER SLEEP.
[2018-12-04 00:01] LABS: ALANINE AMINOTRANSFERASE 27 U/L (0-55); ALBUMIN 4.5 GM/DL (3.2-4.5); ALKALINE PHOSPHATASE 77 U/L (40-136); BILIRUBIN,TOTAL 0.8 MG/DL (0.1-1.0); BUN/CREATININE RATIO 15; CALCIUM 9.8 MG/DL (8.5-10.1); CARBON DIOXIDE 19 MMOL/L (21-32); CHLORIDE 103 MMOL/L (98-107); CREATININE SERUM 0.88 MG/DL (0.60-1.30); GFR ESTIMATED > 60; GLUCOSE 105 MG/DL (70-105); POTASSIUM 3.2 MMOL/L (3.6-5.0); SODIUM 141 MMOL/L (135-145); TOTAL PROTEIN 7.4 GM/DL (6.4-8.2)
[2018-12-04] MEDS ORDERED: NS IV 1000 ML 1,000 ML IV SCH (00:15)
[2018-12-04 01:07] VITALS: BP 111/78
--- NOTE | 2018-12-04 01:08 | NUR ---
PT. HAD REFUSED THE PE ANGIOGRAM
--- NOTE | 2018-12-04 06:16 | Diagnostic Imaging Report ---
EXAMINATION: Portable erect AP chest at 1219 AM INDICATION: Shortness of breath There are no prior studies available for comparison. The heart size is within normal limits. The lungs are clear. There is no evidence for failure, pneumonia or a pleural effusion. There is an azygos lobe. This is a developmental variant. Mediastinum is not widened. The osseous structures are intact. IMPRESSION: There is no evidence for an acute cardiopulmonary abnormality. Dictated by: Dictated on workstation # [id number]
== END 2018-12-04 01:10 | disposition home or self-care (01) ==
LOC: EDUNIT# 23:18 → ER FS 23:19
DX: F41.0 Panic disorder [episodic paroxysmal anxiety] (principal); F32.9 Major depressive disorder, single episode, unspecified; E86.0 Dehydration; Z79.52 Long term (current) use of systemic steroids; Z77.22 Contact with and (suspected) exposure to environmental tobacco smoke (acute) (chronic)
CPT/HCPCS: 36415; 71045; 80053; 84484; 84703; 85025; 85379; 93005; 93041

== ENCOUNTER 2019-03-29 13:07 | Emergency (ER) | payer MEDICAID ==
[~2019-03-29] VITALS: Ht 152.4 cm; Wt 75.4 kg
--- NOTE | 2019-03-29 13:47 | ED Abdominal Pain ---
General Chief Complaint: Abdominal/GI Problems Stated Complaint: BLOODY STOOL; ABD PAIN History of Present Illness Date Seen by Provider: Mar 29, 2019 Time Seen by Provider: 01:20 Initial Comments Patient is here with abdominal cramping and pain with small amounts of blood in the stool this morning, no from work yesterday got home "feel crampy abdominal pain increased throughout the day today with tenderness mainly in the lower quadrants she has a Mirena in dad's time to come out but she is not having any vaginal bleeding and no vaginal discharge she has had some diarrhea has not had any nausea vomiting or fever Timing/Duration: 4-6 Hours Severity/Quality: Moderate Location: RLQ, LLQ Radiation: No Radiation Modifying Factors: Worsens With Eating, Worsens With Movement Associated Symptoms: No Chest Pain, No Fever/Chills, No Fatigue, No Headache, No Nausea/Vomiting Allergies and Home Medications Allergies Coded Allergies: Iodinated Contrast Media (Unverified Adverse Reaction, Mild, VOMITING, 03/29/19) PATIENT VOMITED AFTER GIVEN CONTRAST IN CT. R.T.(R)(CT). Home Medications Cyclobenzaprine HCl 10 Mg Tablet, 10 MG PO Q8H Prescribed by: DONG CARBAJAL on 09/14/18 0553 Methylprednisolone 4 Mg Tab.ds.pk, 4 MG PO UD Prescribed by: DONG CARBAJAL on 09/14/18 0553 Patient Home Medication List Home Medication List Reviewed: Yes Review of Systems Review of Systems Constitutional: no symptoms reported EENTM: No Ear Pain, No Throat Pain Respiratory: Denies Cough, Denies Shortness of Air Cardiovascular: Denies Chest Pain, Denies Irregular Heart Rate Gastrointestinal: Abdominal Pain, Diarrhea; Denies Nausea, Denies Vomiting Genitourinary: Denies Burning, Denies Frequency, Denies Pain Musculoskeletal: No joint pain, No joint swelling Skin: No rash Psychiatric/Neurological: Denies Headache, Denies Numbness, Denies Tingling Endocrine: No Symptoms Reported Past Twjekxr-Bipeyp-Jrslpk Hx Past Med/Social Hx: Reviewed Nursing Past Med/Soc Hx Patient Social History Drug of Choice: HX OF METH USE, DENIES IV USE-STATES SHE SMOKED IT Type Used: Cigarettes 2nd Hand Smoke Exposure: Yes Recent Foreign Travel: No Recent Hopitalizations: No Seasonal Allergies Seasonal Allergies: No Past Medical History Surgeries: No Respiratory: No Cardiac: No Neurological: No [employer]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 oz. 71.869889rs; BMI Method:Stated General Appearance: WD/WN, moderate distress HEENT: PERRL/EOMI, normal ENT inspection, TMs normal Neck: non-tender, full range of motion Respiratory: chest non-tender, lungs clear, normal breath sounds Cardiovascular: regular rate, rhythm, no murmur Gastrointestinal: abnormal bowel sounds (diminished); No distended, No rebound; tenderness Extremities: normal range of motion, non-tender Neurologic/Psychiatric: no motor/sensory deficits, alert, normal mood/affect, oriented x 3 Skin: normal color, warm/dry Progress/Results/Core Measures Results/Orders Lab Results Laboratory Tests Test 03/29/19 13:35 03/29/19 13:45 Range/Units Urine Color YELLOW Urine Clarity CLEAR Urine pH 6.0 5-9 Urine Specific [place] 1.020 1.016-1.022 Urine Protein NEGATIVE NEGATIVE Urine Glucose (UA) NEGATIVE NEGATIVE Urine Ketones NEGATIVE NEGATIVE Urine Nitrite NEGATIVE NEGATIVE Urine Bilirubin NEGATIVE NEGATIVE Urine Urobilinogen 0.2 < = 1.0 MG/DL Urine Leukocyte Esterase 1+ H NEGATIVE Urine RBC (Auto) 2+ H NEGATIVE Urine RBC 10-25 H /HPF Urine WBC 10-25 H /HPF Urine Squamous Epithelial Cells 25-50 H /HPF Urine Crystals NONE /LPF Urine Bacteria FEW H /HPF Urine Casts NONE /LPF Urine Mucus MODERATE H /LPF Urine Trichomonas FEW H /HPF Urine Culture Indicated YES White Blood Count 15.8 H 4.3-11.0 10^3/uL Red Blood Count 4.95 4.35-5.85 10^6/uL Hemoglobin 15.3 11.5-16.0 G/DL Hematocrit 45 35-52 % Mean Corpuscular Volume 92 80-99 FL Mean Corpuscular Hemoglobin 31 25-34 PG Mean Corpuscular Hemoglobin Concent 34 32-36 G/DL Red Cell Distribution Width 13.3 10.0-14.5 % Platelet Count 469 H 130-400 10^3/uL Mean Platelet Volume 9.6 7.4-10.4 FL Neutrophils (%) (Auto) 71 42-75 % Lymphocytes (%) (Auto) 20 12-44 % Monocytes (%) (Auto) 6 0-12 % Eosinophils (%) (Auto) 2 0-10 % Basophils (%) (Auto) 1 0-10 % Neutrophils # (Auto) 11.2 H 1.8-7.8 X 10^3 Lymphocytes # (Auto) 3.1 1.0-4.0 X 10^3 Monocytes # (Auto) 0.9 0.0-1.0 X 10^3 Eosinophils # (Auto) 0.4 H 0.0-0.3 10^3/uL Basophils # (Auto) 0.1 0.0-0.1 10^3/uL Neutrophils % (Manual) 71 % Lymphocytes % (Manual) 18 % Monocytes % (Manual) 5 % Eosinophils % (Manual) 2 % Band Neutrophils 3 % Reactive Lymphocytes 1 % Blood Morphology Comment NORMAL Sodium Level 140 135-145 MMOL/L Potassium Level 4.2 3.6-5.0 MMOL/L Chloride Level 107 98-107 MMOL/L Carbon Dioxide Level 20 L 21-32 MMOL/L Anion Gap 13 5-14 MMOL/L Blood Urea Nitrogen 15 7-18 MG/DL Creatinine 0.70 0.60-1.30 MG/DL Estimat Glomerular Filtration Rate > 60 BUN/Creatinine Ratio 21 Glucose Level 106 H 70-105 MG/DL Calcium Level 9.5 8.5-10.1 MG/DL Corrected Calcium 9.3 8.5-10.1 MG/DL Total Bilirubin 0.3 0.1-1.0 MG/DL Aspartate Amino Transf (AST/SGOT) 12 5-34 U/L Alanine Aminotransferase (ALT/SGPT) 18 0-55 U/L Alkaline Phosphatase 79 40-136 U/L Total Protein 7.3 6.4-8.2 GM/DL Albumin 4.3 3.2-4.5 GM/DL Lipase 22 8-78 U/L My Orders Orders - GARRETT OLVERA JR, MD Cbc And Manual Diff (03/29/19 13:39) Comprehensive Metabolic Panel (03/29/19 13:39) Lipase (03/29/19 13:39) Ua Culture If Indicated (03/29/19 13:39) Urine Bedside (03/29/19 13:39) Occult Blood Stool (03/29/19 13:39) Stool Culture (03/29/19 13:39) Ns Iv 1000 Ml (Sodium Chloride 0.9%) (03/29/19 13:45) Ct Abdomen/Pelvis W (03/29/19 13:58) Iohexol Injection (Omnipaque 350 Mg/Ml 1 (03/29/19 14:15) Received Contrast (Hold Metformin- Contr (03/29/19 14:15) Sodium Chloride Flush (Catheter Flush Sy (03/29/19 14:15) Ns (Ivpb) (Sodium Chloride 0.9% Ivpb Bag (03/29/19 14:15) Ondansetron Injection (Zofran Injectio (03/29/19 14:17) Ondansetron Injection (Zofran Injectio (03/29/19 14:30) Urine Culture (03/29/19 13:35) Lactic Acid Analyzer (03/29/19 15:20) Medications Given in ED Current Medications Medications Dose Ordered Sig/Iris Route Start Time Stop Time Status Last Admin Dose Admin Ondansetron HCl 4 mg ONCE ONCE IVP 03/29/19 14:30 03/29/19 14:31 DC 03/29/19 14:25 4 MG Vital Signs/I&O 03/29/19 14:00 Temp 36.4 Pulse 83 Resp 16 B/P (MAP) 119/78 (92) Pulse Ox 97 Progress Progress Note : Time: 15:[address] scan showed a segment of colitis with a 15,000 white count blood in her stool is fairly significant abdominal cramping poor oral intake in the UTI would recommend she go in for got rest IV antibiotics and evaluation by the surgeon at this time discussed with Dr. De Souza and Dr. Mead regarding admission we'll place her in Cipro and Flagyl and follow Departure Communication (Admissions) Time/Spoke to Admitting Phy: 15:[address] De Souza admission for come bloody stools colitis UTI Impression Primary Impression: Colitis Additional Impressions: UTI (urinary tract infection) Qualified Codes: N30.01 - Acute cystitis with hematuria Bloody stools Disposition: 02 XFER SHT-TRM HOSP Condition: Stable Admissions Decision to Admit Reason: Admit from ER (General) Decision to Admit/Date: Mar 29, 2019 Time/Decision to Admit Time: 15:25 Transfer Transfer Reason: Exceeds level of care Time Spoke to Accepting Phy: 15:27 Method of Transfer: EMS Departure-Patient Inst. Referrals: LEWIS MCCOY MD (PCP/Family) Primary Care Physician GARRETT OLVERA JR, MD Mar 29, 2019 13:46 POS
[2019-03-29] MEDS: NS IV 1000 ML 1,000 ML IV SCH ×2 (13:57→15:57)
--- NOTE | 2019-03-29 14:08 | NUR ---
Pts mother approached the nursing station stating the pt is saying, "Kari is saying the fluid youre giving her is making her abdomen bloat really bad". This RN made pt contact. Pt extremely anxious and hyperventilating as well as tearing up stating, "the fluid up there that youre giving me, its causing me to bloat really bad and my stomach up here(pointing to the epigastric region) to hurt really bad"! This RN reassured the pt and that I would let the doctor know of her concerns. Fluid stopped at this time as pt was going for CT.
[2019-03-29] MEDS ORDERED: HOLD METFORMIN - RECEIVED CONTRAST 20 ML VIAL IV SCH (14:15)
[2019-03-29] MEDS ORDERED: IOHEXOL 350 MG/ML 100 ML (OMNIPAQUE 350) VIAL IV ONE (14:15)
[2019-03-29] MEDS ORDERED: NS 100 ML (IVPB) BAG IV ONE (14:15)
[2019-03-29] MEDS ORDERED: CATHETER FLUSH 10 ML SYR IV PRN (14:15)
[2019-03-29] MEDS ORDERED: ONDANSETRON 4 MG/2 ML (SDV) Z0FRAN ONE (14:17)
[2019-03-29] MEDS ORDERED: ONDANSETRON 4 MG/2 ML (SDV) Z0FRAN IVP ONE (14:30)
[2019-03-29 14:31] LABS: BILIRUBIN,URINE NEGATIVE (NEGATIVE); CLARITY,URINE CLEAR; COLOR,URINE YELLOW; GLUCOSE, URINE (UA) NEGATIVE (NEGATIVE); KETONES,URINE NEGATIVE (NEGATIVE); LEUKOCYTE ESTERASE ,URINE 1+ (NEGATIVE); NITRITE,URINE NEGATIVE (NEGATIVE); PROTEIN,URINE NEGATIVE (NEGATIVE)
[2019-03-29 14:32] LABS: BACTERIA,URINE FEW /HPF; SQUAMOUS EPITHELIAL CELL,UR 25-50 /HPF; TRICHOMONAS,URINE FEW /HPF
[2019-03-29 14:33] LABS: BASOPHILS # (AUTO) 0.1 10^3/uL (0.0-0.1); BASOPHILS % (AUTO) 1 % (0-10); EOSINOPHILS # (AUTO) 0.4 10^3/uL (0.0-0.3); EOSINOPHILS % (AUTO) 2 % (0-10); HEMATOCRIT 45 % (35-52); HEMOGLOBIN 15.3 G/DL (11.5-16.0); LYMPHOCYTES # (AUTO) 3.1 X 10^3 (1.0-4.0); LYMPHOCYTES % (AUTO) 20 % (12-44); MEAN CORPUSCULAR HEMOGLOBIN 31 PG (25-34); MEAN CORPUSCULAR HGB CONC 34 G/DL (32-36); MEAN CORPUSCULAR VOLUME 92 FL (80-99); MEAN PLATELET VOLUME 9.6 FL (7.4-10.4); MONOCYTES # (AUTO) 0.9 X 10^3 (0.0-1.0); MONOCYTES % (AUTO) 6 % (0-12); NEUTROPHILS # (AUTO) 11.2 X 10^3 (1.8-7.8); NEUTROPHILS % (AUTO) 71 % (42-75); PLATELET COUNT 469 10^3/uL (130-400); RED CELL DISTRIBUTION WIDTH 13.3 % (10.0-14.5); WHITE BLOOD COUNT 15.8 10^3/uL (4.3-11.0)
[2019-03-29 14:34] LABS: BAND NEUTROPHILS 3 %; EOSINOPHILS % (MANUAL) 2 %; LYMPHOCYTES % (MANUAL) 18 %; MONOCYTES % (MANUAL) 5 %; NEUTROPHILS % (MANUAL) 71 %; RBC MORPH NORMAL; REACTIVE LYMPHOCYTES 1 %
[2019-03-29 14:35] LABS: ALANINE AMINOTRANSFERASE 18 U/L (0-55); ALKALINE PHOSPHATASE 79 U/L (40-136); BILIRUBIN,TOTAL 0.3 MG/DL (0.1-1.0); BUN/CREATININE RATIO 21; CALCIUM 9.5 MG/DL (8.5-10.1); CARBON DIOXIDE 20 MMOL/L (21-32); CHLORIDE 107 MMOL/L (98-107); GFR ESTIMATED > 60; GLUCOSE 106 MG/DL (70-105); POTASSIUM 4.2 MMOL/L (3.6-5.0); SODIUM 140 MMOL/L (135-145)
[2019-03-29 14:36] LABS: ALBUMIN 4.3 GM/DL (3.2-4.5); LIPASE 22 U/L (8-78); TOTAL PROTEIN 7.3 GM/DL (6.4-8.2)
--- NOTE | 2019-03-29 14:37 | NUR ---
Patient was vomiting in CT. This RN took zofran [address] and administered via IV.
--- NOTE | 2019-03-29 14:44 | Diagnostic Imaging Report ---
CT ABDOMEN/PELVIS W TECHNIQUE: Multiple contiguous axial images were obtained through the abdomen and pelvis after administration of intravenous contrast. All CT scans use one or more of the following dose optimizing techniques: automated exposure control, MA and/or KvP adjustment based on a patient size and exam type, or iterative reconstruction. INDICATION: Abdominal pain since yesterday. Bloody stools. COMPARISON: None available. FINDINGS: Lower chest: The lung bases are clear. No pericardial or pleural effusion. Peritoneum: No free intraperitoneal air or fluid. Liver and biliary system: Diffuse hypoattenuation of the liver is indicative of hepatic steatosis. Focal fatty sparing along the gallbladder fossa is present. There is a simple cyst within the inferior aspect of left hepatic lobe within segment 3 that measures 2.2 x 1.4 cm. Gallbladder is normal in appearance. No biliary duct dilatation. Spleen and Pancreas: Spleen is normal. The pancreas enhances normally without mass lesion or peripancreatic inflammatory changes. Adrenals: Normal. tract: The kidneys enhance normally without suspicious mass or obstruction. There are a few subcentimeter cysts throughout the cortex of both kidneys. Urinary bladder is distended without wall thickening. IUD is appropriately positioned within the uterus. Ovaries are normal in appearance. GI tract: Stomach is decompressed. No bowel obstruction. Mild wall thickening throughout the transverse and descending colon is suggestive of mild colitis. Appendix is normal. No abscess. No diverticulosis. Vasculature and Lymph nodes: Normal caliber aorta. No abdominal or pelvic lymphadenopathy. Musculoskeletal: No concerning osseous lesion. IMPRESSION: 1. Long segment of acute-subacute colitis involving the transverse and descending colon is most likely infectious in etiology. The distribution would be atypical for ulcerative colitis or ischemic bowel disease. 2. No perforation, abscess or obstruction. 3. Diffuse hepatic steatosis. Dictated by: Dictated on workstation # [id number]
[2019-03-29] MEDS ORDERED: metroNIDAZOLE 500MG/100ML IVPB 100 ML IV ONE (15:30)
[2019-03-29] MEDS ORDERED: CIPROFLOXACIN IV 400MG/200ML 200 ML IV ONE (15:30)
[2019-03-29] MEDS ORDERED: LORazepam INJ 2 MG/ML (ATIVAN) VIAL IVP PRN ×2 (15:45→16:45)
[2019-03-29] MEDS ORDERED: NICOTINE 21 MG (NICODERM) PATCH TD ONE (15:45)
--- NOTE | 2019-03-29 16:32 | NUR ---
This RN made pt contact in the room as voices were heard in a loud arguing matter. Pt was arguing with a family member and obviously visibly upset and crying. Pt instructed to calm down and requesting "something to make me forget all this". Pt is wanting to go outside and smoke. Pt instructed she was given a nicotine patch and ativan to help calm her. This RN spoke with the phycian for possible addition of more ativan.
[2019-03-29 16:58] LABS: AMPHETAMINE SCREEN, URINE NEGATIVE (NEGATIVE); BARBITURATE SCREEN URINE NEGATIVE (NEGATIVE); BENZODIAZEPINES SCREEN URINE POSITIVE (NEGATIVE); CANNABINOID SCREEN, URINE POSITIVE (NEGATIVE); COCAINE SCREEN URINE NEGATIVE (NEGATIVE); METHADONE STAT NEGATIVE (NEGATIVE); METHAMPHETAMINE SCREEN URINE S NEGATIVE (NEGATIVE); OPIATE SCREEN URINE NEGATIVE (NEGATIVE); OXYCODONE STAT NEGATIVE (NEGATIVE); PROPOXYPHENE STAT NEGATIVE (NEGATIVE); TRICYCLIC ANTIDEPRESSANTS SCRE NEGATIVE (NEGATIVE)
[2019-03-29] MEDS ORDERED: CIPR500T4 PO (17:17)
[2019-03-29] MEDS ORDERED: METR500T PO ×2 (17:17→17:19)
[2019-03-29] MEDS ORDERED: CIPR-225 PO (17:19)
--- NOTE | 2019-03-29 17:30 | NUR ---
Dr. Barr in to speak with the pt as she continues to be upset. Pt again states she wants to leave and go home. Pt agrees to stay for the remainder of her antibiotic. Pt agrees to sign AMA form.
[2019-03-29 17:58] VITALS: BP 104/82
--- OUTSIDE RECORDS SUMMARY | 2019-04-24 07:59 | XMS REPORT | Continuity of Care Document ---
Author Organization Unknown Address Unknown Phone Unavailable Allergies Active Description Code Type Severity Reaction Onset Reported/Identified Relationship to Patient Clinical Status Yes Codeine Drug Allergy N/A N/A 07/07/2012 Yes Hydrocodone Drug Allergy N/A N/A 07/07/2012 Yes Codeine Drug Allergy 07/07/2012 Yes Hydrocodone Drug Allergy 07/07/2012 Yes No Known Drug Allergies [id number] Drug Allergy Unknown N/A 09/14/2018 Yes Iodinated Contrast Media [id number] Drug Allergy Mild VOMITING 03/29/2019 Medications There is no data. Problems Date Dx Coded Attending Type Code Diagnosis Diagnosed By 09/20/2009 599.0 URIN JULIETTE TRACT INFECTION 09/20/2009 599.0 URIN JULIETTE TRACT INFECTION 09/20/2009 599.0 URIN JULIETTE TRACT INFECTION 09/20/2009 599.0 URIN JULIETTE TRACT INFECTION 07/07/2012 296.90 MOO D DISORDER NOS 07/07/2012 V58.69 MED ICATION HIGH RISK 07/07/2012 296.90 MOO D DISORDER NOS 07/07/2012 V58.69 MED ICATION HIGH RISK 07/07/2012 296.90 MOO D DISORDER NOS 07/07/2012 V58.69 MED ICATION HIGH RISK 09/14/2018 DONG CARBAJAL DO Ot F17.210 NICOTINE DEPENDENCE, CIGARETTES, UNCOMPL 09/14/2018 DONG CARBAJAL DO Ot F32.9 MAJOR DEPRESSIVE DISORDER, SINGLE EPISOD 09/14/2018 DONG CARBAJAL DO Ot F41.9 ANXIETY DISORDER, UNSPECIFIED 09/14/2018 DONG CARBAJAL DO Ot M25.512 PAIN IN LEFT SHOULDER 09/14/2018 DONG CARBAJAL DO Ot M79.18 MYALGIA, OTHER SITE 09/16/2018 DONG CARBAJAL DO Ot F17.210 NICOTINE DEPENDENCE, CIGARETTES, UNCOMPL 09/16/2018 DONG CARBAJAL DO Ot F32.9 MAJOR DEPRESSIVE DISORDER, SINGLE EPISOD 09/16/2018 DONG CARBAJAL DO Ot F41.9 ANXIETY DISORDER, UNSPECIFIED 09/16/2018 DONG CARBAJAL DO Ot M25.512 PAIN IN LEFT SHOULDER 09/16/2018 DONG CARBAJAL DO Ot M79.18 MYALGIA, OTHER SITE 12/04/2018 TONIA DARBY MD Ot E86.0 DEHYDRATION 12/04/2018 TOINA DARBY MD Ot F32.9 MAJOR DEPRESSIVE DISORDER, SINGLE EPISOD 12/04/2018 TONIA DARBY MD Ot F41.0 PANIC DISORDER [EPISODIC PAROXYSMAL ANXI 12/04/2018 TONIA DARBY MD Ot Z77.22 CNTCT W AND EXPSR TO ENVIRON TOBACCO SMO 12/04/2018 TONIA DARBY MD Ot 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 12/08/2018 TONIA DARBY MD Ot E86.0 DEHYDRATION 12/08/2018 TONIA DARBY MD, Ot F32.9 MAJOR DEPRESSIVE DISORDER, SINGLE EPISOD 12/08/2018 TONIA DARBY MD Ot F41.0 PANIC DISORDER [EPISODIC PAROXYSMAL ANXI 12/08/2018 TONIA DARBY MD Ot Z77.22 CNTCT W AND EXPSR TO ENVIRON TOBACCO SMO 12/08/2018 TONIA DARBY MD Ot Z79.52 RESIDENTIAL (CURRENT) USE OF SYSTEMIC STER 03/29/2019 GARRETT OLVERA MD Ot F32.9 MAJOR DEPRESSIVE DISORDER, SINGLE EPISOD 03/29/2019 GARRETT OLVERA MD Ot F41.9 ANXIETY DISORDER, UNSPECIFIED 03/29/2019 GARRETT OLVERA MD Ot K52.9 NONINFECTIVE GASTROENTERITIS AND COLITIS 03/29/2019 GARRETT OLVERA MD Ot K92.1 MELENA 03/29/2019 GARRETT OLVERA MD Ot N39.0 URINARY TRACT INFECTION, SITE NOT SPECIF 03/29/2019 GARRETT OLVERA MD Ot Z77.22 CNTCT W AND EXPSR TO ENVIRON TOBACCO SMO 03/29/2019 WADE FRANCO, GARRETT Suárez Ot Z91.041 RADIOGRAPHIC DYE ALLERGY STATUS 04/03/2019 GARRETT OLVERA MD Ot F32.9 MAJOR DEPRESSIVE DISORDER, SINGLE EPISOD 04/03/2019 GARRETT OLVERA MD Ot F41.9 ANXIETY DISORDER, UNSPECIFIED 04/03/2019 GARRETT OLVERA MD Ot K52.9 NONINFECTIVE GASTROENTERITIS AND COLITIS 04/03/2019 WADE FRANCO, GARRETT Suárez Ot K92.1 MELENA 04/03/2019 WADE FRANCO, GARRETT Suárez Ot N39.0 URINARY TRACT INFECTION, SITE NOT SPECIF 04/03/2019 WADE FRANCO, GARRETT Suárez Ot Z77.22 CNTCT W AND EXPSR TO ENVIRON TOBACCO SMO 04/03/2019 WADE FRANCO, GARRETT Suárez Ot Z91.041 RADIOGRAPHIC DYE ALLERGY STATUS Procedures Code Description [place] [address] PSYC H DIAG EVAL W/MED SRVCS 07/11/2012 Results Test Result Range Complete blood count (CBC) with automate d white blood cell (WBC) differential - 12/03/18 23:29 Blood leukocytes automated count (number/volume) 13.0 10*3/uL 4.3-11.0 Blood erythrocytes automated count (number/volume) 4.53 10*6/uL 4.35-5.85 Venous blood hemoglobin measurement (mass/volume) 14.1 g/dL 11.5-16.0 Blood hematocrit (volume fraction) 41 % 35-52 Automated erythrocyte mean corpuscular volume 90 [ foz_us] 80-99 Automated erythrocyte mean corpuscular h emoglobin (mass per erythrocyte) 31 pg 25-34 Automated erythrocyte mean corpuscular h emoglobin concentration measurement (mass/volume) 35 g/dL 32-36 Automated erythrocyte distribution width ratio 13. 1 % 10.0- 14.5 Automated blood platelet count (count/volume) 397 10*3/uL 130-400 Automated blood platelet mean volume measurement 10.1 [foz_us] 7.4-10.4 Automated blood neutrophils/100 leukocytes 54 % 42-75 Automated blood lymphocytes/100 leukocytes 35 % 12-44 Blood monocytes/100 leukocytes 8 % 0-12 Automated blood eosinophils/100 leukocytes 2 % 0-10 Automated blood basophils/100 leukocytes 1 % 0-10 Blood neutrophils automated count (number/volume) 7.0 10*3 1.8-7.8 Blood lymphocytes automated count (number/volume) 4.6 10*3 1.0-4.0 Blood monocytes automated count (number/volume) 1. 1 10*3 0.0-1.0 Automated eosinophil count 0.2 10*3/uL 0 .0-0.3 Automated blood basophil count (count/volume) 0.1 10*3/uL 0.0-0.1 Serum or plasma choriogonadotropin (preg marivel test) detection - 12/03/18 23:29 Serum or plasma choriogonadotropin ( test) de tection NEGATIVE NEGATIVE Comprehensive metabolic panel - 12/03/18 23:29 Serum or plasma sodium measurement (moles/volume) 141 mmol/L 135-145 Serum or plasma potassium measurement (moles/volume) 3.2 mmol/L 3.6-5.0 Serum or plasma chloride measurement (moles/volume) 103 mmol/L 98-107 Carbon dioxide 19 mmol/L 21-32 Serum or plasma anion gap determination (moles/volume) 19 mmol/L 5-14 Serum or plasma urea nitrogen measurement (mass/volume ) 13 mg/dL 7-18 Serum or plasma creatinine measurement (mass/volume) 0.88 mg/dL 0.60-1.30 Serum or plasma urea nitrogen/creatinine mass ratio 15 NRG Serum or plasma creatinine measurement w ith calculation of estimated glomerular filtration rate > NRG Serum or plasma glucose measurement (mass/volume) 105 mg/dL 70-105 Serum or plasma calcium measurement (mass/volume) 9.8 mg/dL 8.5-10.1 Serum or plasma total bilirubin measurement (mass/volu me) 0.8 mg/dL 0.1-1.0 Serum or plasma alkaline phosphatase nick surement (enzymatic activity/volume) 77 U/L 40-136 Serum or plasma aspartate aminotransfera se measurement (enzymatic activity/volume) 15 U/L 5-34 Serum or plasma alanine aminotransferase measurement (enzymatic activity/volume) 27 U/L 0-55 Serum or plasma protein measurement (mass/volume) 7.4 g/dL 6.4-8.2 Serum or plasma albumin measurement (mass/volume) 4.5 g/dL 3.2-4.5 CALCIUM CORRECTED 9.4 mg/dL 8.5-10.1 Serum or plasma troponin i.cardiac measu rement (mass/volume) - 12/03/18 23:29 Serum or plasma troponin i.cardiac measurement (mass/v olume) < ng/mL <0.30 Fibrin D-dimer FEU measurement in platel et poor plasma (mass/volume) - 12/03/18 23:29 Fibrin D-dimer FEU measurement in platelet poor plasma (mass/volume) 0.61 ug/mL 0.00-0.49 CULTURE, URINE - 02/21/19 17:20 CULTURE, URINE, ROUTINE SEE NOTE NRG Complete urinalysis with reflex to cultu re - 03/29/19 13:35 Urine color determination YELLOW NRG Urine clarity determination CLEAR NR G Urine pH measurement by test strip 6.0 5-9 Specific gravity of urine by test strip 1.020 1.016-1.022 Urine protein assay by test strip, semi-quantitative NEGATIVE NEGATIVE Urine glucose detection by automated test strip NE GATIVE NEGATIVE Erythrocytes detection in urine sediment by light micr oscopy 2+ NEGATIVE Urine ketones detection by automated test strip NE GATIVE NEGATIVE Urine nitrite detection by test strip NEGATIVE NEGATIVE Urine total bilirubin detection by test strip NEGA TIVE NEGATIVE Urine urobilinogen measurement by automated test strip (mass/volume) 0.2 mg/dL < = 1.0 Urine leukocyte esterase detection by dipstick 1+ NEGATIVE Automated urine sediment erythrocyte cou nt by microscopy (number/high power field) [HPF] NRG Automated urine sediment leukocyte count by microscopy (number/high power field) [HPF] NRG Bacteria detection in urine sediment by light microsco py FEW NRG Squamous epithelial cells detection in u rine sediment by light microscopy 25-50 NRG Crystals detection in urine sediment by light microsco py NONE NRG Casts detection in urine sediment by light microscopy NONE NRG Mucus detection in urine sediment by light microscopy MODERATE NRG Complete urinalysis with reflex to culture YES NRG Urine Trichomonas species detection by light microscop y FEW NRG Urine drug screening test - 03/29/19 13: 35 Urine phencyclidine detection by screening method NEGATIVE NEGATIVE Urine benzodiazepines detection by screening method POSITIVE NEGATIVE Urine cocaine detection NEGATIVE NEGATI VE Urine amphetamines detection by screening method N EGATIVE NEGATIVE Urine methamphetamine detection by screening method NEGATIVE NEGATIVE Urine cannabinoids detection by screening method P OSITIVE NEGATIVE Urine opiates detection by screening method NEGATI VE NEGATIVE Urine barbiturates detection NEGATIVE N EGATIVE Screening urine tricyclic antidepressants detection NEGATIVE NEGATIVE Urine methadone detection by screening method NEGA TIVE NEGATIVE Urine oxycodone detection NEGATIVE NEGA TIVE Urine propoxyphene detection NEGATIVE N EGATIVE Bacterial urine culture - 03/29/19 13:35 Bacterial urine culture 3 OR MORE NRG COLONY COUNT 30,000 CFU/ML NRG FTX;REPORTABLE SUGGESTING PROBABLE COLLECTION NRG FREE TEXT ENTRY 2 CONTAMINATION WITH SKIN DEEPALI NRG FREE TEXT ENTRY 3 NO SUSCEPTIBILITY PERFORMED NRG Blood CBC with ordered manual differenti al panel - 03/29/19 13:45 Blood leukocytes automated count (number/volume) 15.8 10*3/uL 4.3-11.0 Blood erythrocytes automated count (number/volume) 4.95 10*6/uL 4.35-5.85 Venous blood hemoglobin measurement (mass/volume) 15.3 g/dL 11.5-16.0 Blood hematocrit (volume fraction) 45 % 35-52 Automated erythrocyte mean corpuscular volume 92 [ foz_us] 80-99 Automated erythrocyte mean corpuscular h emoglobin (mass per erythrocyte) 31 pg 25-34 Automated erythrocyte mean corpuscular h emoglobin concentration measurement (mass/volume) 34 g/dL 32-36 Automated erythrocyte distribution width ratio 13. 3 % 10.0- 14.5 Automated blood platelet count (count/volume) 469 10*3/uL 130-400 Automated blood platelet mean volume measurement 9.6 [foz_us] 7.4-10.4 Automated blood neutrophils/100 leukocytes 71 % 42-75 Automated blood lymphocytes/100 leukocytes 20 % 12-44 Blood monocytes/100 leukocytes 5 % NRG Automated blood eosinophils/100 leukocytes 2 % 0-10 Automated blood basophils/100 leukocytes 1 % 0-10 Blood neutrophils automated count (number/volume) 11.2 10*3 1.8-7.8 Blood lymphocytes automated count (number/volume) 3.1 10*3 1.0-4.0 Blood monocytes automated count (number/volume) 0. 9 10*3 0.0-1.0 Automated eosinophil count 0.4 10*3/uL 0 .0-0.3 Automated blood basophil count (count/volume) 0.1 10*3/uL 0.0-0.1 Manual blood segmented neutrophils/100 leukocytes 71 % NRG Blood band neutrophils/100 leukocytes 3 % NRG Manual blood lymphocytes/100 leukocytes 18 % NRG Manual eosinophils/100 leukocytes in nose 2 % NRG Blood lymphocytes variant/100 leukocytes 1 % NRG Blood erythrocyte morphology finding identification NORMAL NR Comprehensive metabolic panel - 03/29/19 13:45 Serum or plasma sodium measurement (moles/volume) 140 mmol/L 135-145 Serum or plasma potassium measurement (moles/volume) 4.2 mmol/L 3.6-5.0 Serum or plasma chloride measurement (moles/volume) 107 mmol/L 98-107 Carbon dioxide 20 mmol/L 21-32 Serum or plasma anion gap determination (moles/volume) 13 mmol/L 5-14 Serum or plasma urea nitrogen measurement (mass/volume ) 15 mg/dL 7-18 Serum or plasma creatinine measurement (mass/volume) 0.70 mg/dL 0.60-1.30 Serum or plasma urea nitrogen/creatinine mass ratio 21 NRG Serum or plasma creatinine measurement w ith calculation of estimated glomerular filtration rate > NRG Serum or plasma glucose measurement (mass/volume) 106 mg/dL 70-105 Serum or plasma calcium measurement (mass/volume) 9.5 mg/dL 8.5-10.1 Serum or plasma total bilirubin measurement (mass/volu me) 0.3 mg/dL 0.1-1.0 Serum or plasma alkaline phosphatase nick surement (enzymatic activity/volume) 79 U/L 40-136 Serum or plasma aspartate aminotransfera se measurement (enzymatic activity/volume) 12 U/L 5-34 Serum or plasma alanine aminotransferase measurement (enzymatic activity/volume) 18 U/L 0-55 Serum or plasma protein measurement (mass/volume) 7.3 g/dL 6.4-8.2 Serum or plasma albumin measurement (mass/volume) 4.3 g/dL 3.2-4.5 CALCIUM CORRECTED 9.3 mg/dL 8.5-10.1 Lipase - 03/29/19 13:45 Lipase 22 U/L 8-78 CMP - 04/05/19 12:52 GLUCOSE 75 mg/dL 65-139 UREA NITROGEN (BUN) 13 mg/dL 7-25 CREATININE 0.74 mg/dL 0.50-1.10 eGFR NON-AFR. [place] 105 mL/min/1.73m2 > OR = 60 eGFR 122 mL/min/1.73m2 > OR = 60 BUN/CREATININE RATIO NOT APPLICABLE (calc) 6-22 SODIUM 139 mmol/L 135-146 POTASSIUM 4.3 mmol/L 3.5-5.3 CHLORIDE 106 mmol/L 98-110 CARBON DIOXIDE 25 mmol/L 20-32 CALCIUM 9.5 mg/dL 8.6-10.2 PROTEIN, TOTAL 7.0 g/dL 6.1-8.1 ALBUMIN 4.3 g/dL 3.6-5.1 GLOBULIN 2.7 g/dL (calc) 1.9-3.7 ALBUMIN/GLOBULIN RATIO 1.6 (calc) 1.0-2. 5 BILIRUBIN, TOTAL 0.4 mg/dL 0.2-1.2 ALKALINE PHOSPHATASE 75 U/L 33-115 AST 10 U/L 10-30 ALT 15 U/L 6-29 CBC - 04/05/19 12:52 WHITE BLOOD CELL COUNT 15.8 Thousand/uL 3.8-10.8 RED BLOOD CELL COUNT 5.05 Million/uL 3.8 0-5.10 HEMOGLOBIN 15.7 g/dL 11.7-15.5 HEMATOCRIT 47.2 % 35.0-45.0 MCV 93.5 fL 80.0-100.0 MCH 31.1 pg 27.0-33.0 MCHC 33.3 g/dL 32.0-36.0 RDW 13.0 % 11.0-15.0 PLATELET COUNT 492 Thousand/uL 140-400 MPV 10.4 fL 7.5-12.5 ABSOLUTE NEUTROPHILS 26897 cells/uL 1500 -7800 ABSOLUTE LYMPHOCYTES 3776 cells/uL 850-3 900 ABSOLUTE MONOCYTES 1201 cells/uL 200-950 ABSOLUTE EOSINOPHILS 300 cells/uL 15-500 ABSOLUTE BASOPHILS 111 cells/uL 0-200 NEUTROPHILS 65.9 % NRG LYMPHOCYTES 23.9 % NRG MONOCYTES 7.6 % NRG EOSINOPHILS 1.9 % NRG BASOPHILS 0.7 % NRG Encounters ACCT No. Visit Date/Time Discharge Status Pt. Type Provider Facility Loc./Unit Complaint [id number] 04/05/2019 11:15:00 04/05/2019 23:59:5 9 CLS Outpatient SELF, LEWIS Sanderson [facility] [id number] 04/05/2019 11:15:00 Document Registration [id number] 02/21/2019 16:20:00 Document Registration [id number] 07/07/2012 07:58:00 07/07/2012 23:59: 59 CLS Outpatient [id number] 09/20/2009 13:32:00 09/20/2009 23:59: 59 CLS Outpatient [id number] 10/11/2012 12:30:00 Document Registration [id number] 07/07/2012 07:58:00 Document Registration [id number] 04/05/2019 11:49:00 23:59:59 CLS Outpatient LEWIS MCCOY MD [facility] RAD FS K52.9 [id number] 03/29/2019 13:08:00 17:58:00 DIS Emergency WADE FRANCO, GARRETT Suárez [facility] ER FS BLOODY DIARHEA [id number] 12/03/2018 23:19:00 01:10:00 DIS Emergency MEHNAZ FRANCO, TONIA brown [facility] ER FS SOB [id number] 09/14/2018 05:30:00 05:52:00 DIS Emergency DONG CARBAJAL DO [facility] ER LEFT SHOULDER PAIN
--- OUTSIDE RECORDS SUMMARY | 2019-04-24 14:12 | XMS REPORT | Continuity of Care Document ---
Author Organization Unknown Address Unknown Phone Unavailable Allergies Active Description Code Type Severity Reaction Onset Reported/Identified Relationship to Patient Clinical Status Yes Codeine Drug Allergy N/A N/A 07/07/2012 Yes Hydrocodone Drug Allergy N/A N/A 07/07/2012 Yes Codeine Drug Allergy 07/07/2012 Yes Hydrocodone Drug Allergy 07/07/2012 Yes No Known Drug Allergies [id number] Drug Allergy Unknown N/A 09/14/2018 Yes Iodinated Contrast Media [id number] Drug Allergy Mild VOMITING 03/29/2019 Medications There [...] TONIA DARBY MD Ot E86.0 DEHYDRATION 12/04/2018 TONIA DARBY MD Ot F32.9 MAJOR DEPRESSIVE DISORDER, SINGLE EPISOD 12/04/2018 TONIA DARBY MD Ot F41.0 PANIC DISORDER [EPISODIC PAROXYSMAL ANXI 12/04/2018 TONIA DARBY MD Ot Z77.22 CNTCT W AND EXPSR TO ENVIRON TOBACCO SMO 12/04/2018 TONIA DARBY MD Ot 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 [place] 105 mL/min/1.73m2 > OR = 60 eGFR [...] 140-400 MPV 10.4 fL 7.5-12.5 ABSOLUTE NEUTROPHILS 83243 cells/uL 1500 -7800 ABSOLUTE LYMPHOCYTES 3776 cells/uL 850-3 900 ABSOLUTE MONOCYTES 1201 cells/uL 200-950 ABSOLUTE EOSINOPHILS 300 cells/uL 15-500 ABSOLUTE BASOPHILS 111 cells/uL 0-200 NEUTROPHILS 65.9 % NRG LYMPHOCYTES 23.9 % NRG MONOCYTES 7.6 % NRG EOSINOPHILS 1.9 % NRG BASOPHILS 0.7 % NRG Encounters ACCT No. Visit Date/Time Discharge Status Pt. Type Provider Facility Loc./Unit Complaint [id number] 04/05/2019 11:15:00 04/05/2019 23:59:5 9 CLS Outpatient SELF, LEWIS Sanderson [facility] [id number] 04/05/2019 11:15:00 Document Registration [id number] 02/21/2019 16:20:00 Document Registration [id number] 07/07/2012 07:58:00 07/07/2012 23:59: 59 CLS Outpatient [id number] 09/20/2009 13:32:00 09/20/2009 23:59: 59 CLS Outpatient [id number] 10/11/2012 12:30:00 Document Registration [id number] 07/07/2012 07:58:00 Document Registration [id number] 04/05/2019 11:49:00 23:59:59 CLS Outpatient LEWIS MCCOY MD [facility] RAD FS K52.9 [id number] 03/29/2019 13:08:00 17:58:00 DIS Emergency WADE FRANCO, GARRETT Suárez [facility] ER FS BLOODY DIARHEA [id number] 12/03/2018 23:19:00 01:10:00 DIS Emergency MEHNAZ FRANCO, TONIA brown [facility] ER FS SOB [id number] 09/14/2018 05:30:00 05:52:00 DIS Emergency DONG CARBAJAL DO [facility] ER LEFT SHOULDER PAIN
== END 2019-03-29 17:58 | disposition home or self-care (01) ==
LOC: EDUNIT# 13:07 → ER FS 13:08 → 4TH 15:30 → UNDOADMIN 15:30 → ER FS 17:58
DX: K52.9 Noninfective gastroenteritis and colitis, unspecified (principal); N39.0 Urinary tract infection, site not specified; K92.1 Melena; F41.9 Anxiety disorder, unspecified; F32.9 Major depressive disorder, single episode, unspecified; Z91.041 Radiographic dye allergy status; Z77.22 Contact with and (suspected) exposure to environmental tobacco smoke (acute) (chronic)
CPT/HCPCS: 36415; 74177; 80053; 80306; 81000; 83690; 84703; 85007; 85027; 87088; 96361; 96365; 96375; 96376

== ENCOUNTER → 2019-04-05 | Outpatient (CLI) | payer MEDICAID ==
[~2019-04-05] MED LIST changes: +CIPR-225 PO; +CIPR500T4 PO; +METR500T PO
--- NOTE | 2019-04-05 12:50 | Diagnostic Imaging Report ---
INDICATION: Colitis. COMPARISON: 12/04/2018 FINDINGS: Supine and upright views of the abdomen show a nondistended bowel gas pattern. No abnormal air fluid levels or free intraperitoneal air is seen. No abnormal extraosseous calcifications are seen. Bony and soft tissue structures are within normal limits. No organomegaly is identified. Indwelling IUD is noted. Accompanying upright chest shows normal heart size and pulmonary vascularity. The lungs are well aerated and clear. The mediastinum is normal in appearance. IMPRESSION: 1. No bowel obstruction or free air. 2. Normal chest. No pneumonia or pulmonary edema. Dictated by: Dictated on workstation # [id number]
== END ==
LOC: RAD FS 11:49
PROVIDERS: ATTEND Family Medicine
DX: K52.9 Noninfective gastroenteritis and colitis, unspecified (principal); Z97.5 Presence of (intrauterine) contraceptive device
CPT/HCPCS: 74022

== ENCOUNTER 2019-05-26 13:06 | Emergency (ER) | payer MEDICAID ==
[~2019-05-26] VITALS: Ht 149.9 cm; Wt 75.9 kg
[2019-05-26] MEDS ORDERED: morphine INJ 10 MG/ML 1ML (SYR OR VIAL) IVP STA ×2 (13:24→14:46)
[2019-05-26] MEDS ORDERED: ONDANSETRON 4 MG/2 ML (SDV) Z0FRAN IVP ONE ×2 (13:30→15:00)
[2019-05-26] MEDS ORDERED: NS IV 1000 ML 1,000 ML IV SCH (13:30)
--- NOTE | 2019-05-26 13:34 | NUR ---
Pt with sobbing and thrashing and will not give number for pain scale while medication being drawn up. Pt's male significant other states to nurse, "Uhm, oh she has a 10 for her pain."
--- NOTE | 2019-05-26 13:43 | ED Abdominal Pain ---
General Chief Complaint: Abdominal/GI Problems Stated Complaint: TROUBLE BREATHING Nursing Triage Note: Patient reports right flank/RUQ/Right upper back pain since yesterday. States she has also had nausea and vomiting. Sepsis Screen: No Definite Risk Source of Information: Patient Exam Limitations: No Limitations History of Present Illness Date Seen by Provider: May 26, 2019 Time Seen by Provider: 13:25 Initial Comments The patient is a 33-year-old female who presents for evaluation of right flank and right upper quadrant abdominal pain which started yesterday. She also had an episode of nausea and vomiting. She states that she went to an urgent care yesterday and had labs done which were reportedly unremarkable other than showing some blood in her urine. Today she states she went back to urgent care and that her symptoms were worsening so they directed her to come to the emergency department. She states that she has had a kidney stone the past but is unsure if this feels similar. She denies fevers or chills, chest pain or shortness of breath, pelvic pain/bleeding/discharge, urinary complaints, dizziness or syncope. Timing/Duration: 1-2 Days Severity/Quality: Moderate Location: RUQ, Flank (right) Radiation: Shoulder (right) Activities at Onset: None Associated Symptoms: Nausea/Vomiting Allergies and Home Medications Allergies Coded Allergies: Iodinated Contrast Media (Unverified Adverse Reaction, Mild, VOMITING, 03/29/19) PATIENT VOMITED AFTER GIVEN CONTRAST IN CT. R.T.(R)(CT). Home Medications Ciprofloxacin HCl 500 Mg Tablet, 500 MG PO BID Prescribed by: GARRETT OLVERA on 03/29/191800 Ciprofloxacin HCl 500 Mg Tablet, 500 MG PO Q12H Prescribed by: GARRETT OLVERA on 03/29/191718 Cyclobenzaprine HCl 10 Mg Tablet, 10 MG PO Q8H Prescribed by: DONG CARBAJAL on 09/14/18 0553 Methylprednisolone 4 Mg Tab.ds.pk, 4 MG PO UD Prescribed by: DONG CARBAJAL on 09/14/18552 Metronidazole 500 Mg Tablet, 500 MG PO Q6H Prescribed by: GARRETT OLVERA on 03/29/191800 Metronidazole 500 Mg Tablet, 500 MG PO Q6H Prescribed by: GARRETT OLVERA on 03/29/191718 Patient Home Medication List Home Medication List Reviewed: Yes Review of Systems Review of Systems Constitutional: no symptoms reported EENTM: No Symptoms Reported Respiratory: No Symptoms Reported Cardiovascular: No Symptoms Reported Gastrointestinal: Abdominal Pain, Nausea, Vomiting Genitourinary: No Symptoms Reported Musculoskeletal: no symptoms reported Skin: no symptoms reported Psychiatric/Neurological: No Symptoms Reported Endocrine: No Symptoms Reported Hematologic/Lymphatic: No Symptoms Reported All Other Systems Reviewed Negative Unless Noted: Yes Past Aqpbnwc-Fwshlk-Tmfeiv Hx Past Med/Social Hx: Reviewed Nursing Past Med/Soc Hx Patient Social History Drug of Choice: HX OF METH USE, DENIES IV USE-STATES SHE SMOKED IT Type Used: Cigarettes 2nd Hand Smoke Exposure: Yes Recent Foreign Travel: No Contact w/Someone Who Travel: No Recent Infectious Disease Expo: No Recent Hopitalizations: No Seasonal Allergies Seasonal Allergies: No Past Medical History Surgeries: No Respiratory: No Cardiac: No Neurological: 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 oz. 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, no motor/sensory deficits, alert, normal mood/affect, oriented x 3 Skin: normal color, warm/dry Progress/Results/Core Measures Results/Orders Lab Results Laboratory Tests Test 05/26/19 13:15 Range/Units White Blood Count 16.4 H 4.3-11.0 10^3/uL Red Blood Count 4.84 4.35-5.85 10^6/uL Hemoglobin 15.1 11.5-16.0 G/DL Hematocrit 44 35-52 % Mean Corpuscular Volume 92 80-99 FL Mean Corpuscular Hemoglobin 31 25-34 PG Mean Corpuscular Hemoglobin Concent 34 32-36 G/DL Red Cell Distribution Width 13.0 10.0-14.5 % Platelet Count 487 H 130-400 10^3/uL Mean Platelet Volume 10.1 7.4-10.4 FL Neutrophils (%) (Auto) 68 42-75 % Lymphocytes (%) (Auto) 23 12-44 % Monocytes (%) (Auto) 7 0-12 % Eosinophils (%) (Auto) 1 0-10 % Basophils (%) (Auto) 1 0-10 % Neutrophils # (Auto) 11.2 H 1.8-7.8 X 10^3 Lymphocytes # (Auto) 3.8 1.0-4.0 X 10^3 Monocytes # (Auto) 1.1 H 0.0-1.0 X 10^3 Eosinophils # (Auto) 0.2 0.0-0.3 10^3/uL Basophils # (Auto) 0.1 0.0-0.1 10^3/uL Neutrophils % (Manual) 67 % Lymphocytes % (Manual) 22 % Monocytes % (Manual) 8 % Eosinophils % (Manual) 1 % Basophils % (Manual) 0 % Band Neutrophils 2 % Sodium Level 140 135-145 MMOL/L Potassium Level 3.8 3.6-5.0 MMOL/L Chloride Level 104 98-107 MMOL/L Carbon Dioxide Level 22 21-32 MMOL/L Anion Gap 14 5-14 MMOL/L Blood Urea Nitrogen 10 7-18 MG/DL Creatinine 0.63 0.60-1.30 MG/DL Estimat Glomerular Filtration Rate > 60 BUN/Creatinine Ratio 16 Glucose Level 110 H 70-105 MG/DL Calcium Level 9.2 8.5-10.1 MG/DL Corrected Calcium 8.9 8.5-10.1 MG/DL Total Bilirubin 0.3 0.1-1.0 MG/DL Aspartate Amino Transf (AST/SGOT) 13 5-34 U/L Alanine Aminotransferase (ALT/SGPT) 23 0-55 U/L Alkaline Phosphatase 79 40-136 U/L Total Protein 7.5 6.4-8.2 GM/DL Albumin 4.4 3.2-4.5 GM/DL Amylase Level 27 25-125 U/L Lipase 23 8-78 U/L Serum Test, Qualitative NEGATIVE NEGATIVE My Orders Orders - ELPIDIO TAVERA DO Comprehensive Metabolic Panel (05/26/19 13:24) Lipase (05/26/19 13:24) Amylase (05/26/19 13:24) Ua Culture If Indicated (05/26/19 13:24) Ed Iv/Invasive Line Start (05/26/19 13:24) Cbc With Automated Diff (05/26/19 13:24) Hcg,Qualitative Serum (05/26/19 13:24) Ns Iv 1000 Ml (Sodium Chloride 0.9%) (05/26/19 13:30) Ct Abdomen/Pelvis Wo (05/26/19 13:24) Ondansetron Injection (Zofran Injectio (05/26/19 13:30) Morphine Injection (Morphine Injection (05/26/19 13:24) Manual Differential (05/26/19 13:15) Ondansetron Injection (Zofran Injectio (05/26/19 15:00) Morphine Injection (Morphine Injection (05/26/19 14:46) Drug Screen Urine Cl(Send Out) (05/26/19 15:08) Medications Given in ED Current Medications Medications Dose Ordered Sig/Iris Route Start Time Stop Time Status Last Admin Dose Admin Ondansetron HCl 4 mg ONCE ONCE IVP 05/26/19 13:30 05/26/19 13:31 DC 05/26/19 13:34 4 MG Vital Signs/I&O 05/26/19 05/26/19 13:13 13:34 Temp 36.3 36.3 Pulse 94 Resp 22 B/P (MAP) 135/99 (111) Pulse Ox 96 O2 Delivery Room Air Blood Pressure Mean: 111 Progress Progress Note : Progress Note @1520 - Patient informed of lab and imaging results. The patient that I do not see a clear reason for her pain. The patient begins to cry and states that no one has been able to figure this out for 6 months. The patient had not previously told me that she has been dealing with this for 6 months but told me instead that the pain started 2 days ago. She actually told me that she had never had pain like this before but is now saying that this is been going on for 6 months. She has had multiple benign imaging studies. She states that she has been told several times that she has an elevated white blood cell count. I explained to the patient that I understand her frustrations and I would be happy to admit her at [facility] and have a general surgeon evaluate her. The patient is adamantly against admission and wants to go home. I advised the patient to follow up with general surgery as an outpatient in the next 1-2 days and to return to the emergency Department immediately for new or worsening symptoms or if she changes her mind and would like to be admitted. Intact expresses verbal understanding and agreement with the plan and is stable for discharge. Diagnostic Imaging Diagonstic Imaging: CT Comments [facility], [place], [place] NAME: PIERO CHAVEZ [facility] REC#: [id number] PT STATUS: REG ER : 1985 PHYSICIAN: ELPIDIO TAVERA DO ADMIT DATE: 05/26/19/ER FS Draft Date of Exam:05/26/19 CT ABDOMEN/PELVIS WO PROCEDURE: CT abdomen and pelvis without contrast. TECHNIQUE: Multiple contiguous axial images were obtained through the abdomen and pelvis without the use of intravenous contrast. Auto Exposure Controls were utilized during the CT exam to meet ALARA standards for radiation dose reduction. All CT scans use one or more of the following dose optimizing techniques: automated exposure control, MA and/or KvP adjustment based on patient size and exam type or iterative reconstruction. INDICATION: Right-sided flank pain for two days. COMPARISON: Comparison is made with prior CT from 03/29/2019. FINDINGS: The lung bases are clear. Diffuse low density throughout the liver is again noted consistent with hepatic steatosis. Circumscribed low-density lesion in the left lobe is stable and most likely represents a cyst. Gallbladder is unremarkable. No biliary ductal dilatation is seen. The pancreas and spleen are unremarkable. No adrenal mass is detected. The renal cortical low densities in the upper pole appear stable. Nonobstructing calculus in right kidney measures 6 mm. No definite hydronephrosis is seen. No definite ureteral calculi are identified. Calcific densities in the pelvis likely represent phleboliths. There is an IUD in the uterus. No bladder calculi are seen. Aorta is non-aneurysmal. Bowel loops are normal caliber. There is no ascites. Previously noted findings of colitis have resolved since prior exam. IMPRESSION: 1. Hepatic steatosis. 2. Nonobstructing right renal calculus. No definite ureteral calculi or hydronephrosis is identified. 3. Resolution of previously noted findings of colitis since study from 03/29/2019. Dictated on workstation # [id number] Dict: 05/26/19 1439 Trans: 05/26/19 1450 [facility] [id number] Interpreted by: JEAN WING MD Electronically signed by: Departure Impression Primary Impression: RUQ abdominal pain Additional Impressions: Leukocytosis Nausea and vomiting Disposition: HOME, SELF-CARE Condition: Stable Departure-Patient Inst. Decision time for Depature: 15:24 Referrals: ZEYNEP REAVES DO LEWIS MCCOY MD (PCP/Family) Primary Care Physician Patient Instructions: Acute Abdomen (Belly Pain), Adult (DC) Add. Discharge Instructions: Follow-up with the general surgeon provided in the next 1-2 days. Take the prescribed medicine as directed. Return to the emergency Department immediately for new or worsening symptoms or if she changes her mind and would like to be admitted and evaluated by general surgeon. Scripts Ondansetron (Ondansetron Odt) 4 Mg Tab.rapdis 4 MG PO Q6H PRN for NAUSEA/VOMITING-1ST LINE for 5 Days, #20 TAB Prov: ELPIDIO TAVERA DO 05/26/19 Hydrocodone/Acetaminophen ([place] 7.5-325 Tablet) 1 Each Tablet 1 TAB PO Q4H for PAIN-MODERATE MDD 6 TABS for 7 Days, #15 TAB Prov: ELPIDIO TAVERA DO 05/26/19 ELPIDIO TAVERA DO May 26, 2019 13:42
[2019-05-26 13:53] LABS: BASOPHILS % (AUTO) 1 % (0-10); HEMATOCRIT 44 % (35-52); HEMOGLOBIN 15.1 G/DL (11.5-16.0); LYMPHOCYTES % (AUTO) 23 % (12-44); MEAN CORPUSCULAR HEMOGLOBIN 31 PG (25-34); MEAN CORPUSCULAR HGB CONC 34 G/DL (32-36); MEAN CORPUSCULAR VOLUME 92 FL (80-99); MEAN PLATELET VOLUME 10.1 FL (7.4-10.4); MONOCYTES % (AUTO) 7 % (0-12); NEUTROPHILS % (AUTO) 68 % (42-75); PLATELET COUNT 487 10^3/uL (130-400); WHITE BLOOD COUNT 16.4 10^3/uL (4.3-11.0)
[2019-05-26 13:54] LABS: BASOPHILS # (AUTO) 0.1 10^3/uL (0.0-0.1); EOSINOPHILS # (AUTO) 0.2 10^3/uL (0.0-0.3); EOSINOPHILS % (AUTO) 1 % (0-10); LYMPHOCYTES # (AUTO) 3.8 X 10^3 (1.0-4.0); MONOCYTES # (AUTO) 1.1 X 10^3 (0.0-1.0); NEUTROPHILS # (AUTO) 11.2 X 10^3 (1.8-7.8)
[2019-05-26 14:19] LABS: ALKALINE PHOSPHATASE 79 U/L (40-136); BILIRUBIN,TOTAL 0.3 MG/DL (0.1-1.0); BUN/CREATININE RATIO 16; CALCIUM 9.2 MG/DL (8.5-10.1); CARBON DIOXIDE 22 MMOL/L (21-32); CHLORIDE 104 MMOL/L (98-107); CREATININE SERUM 0.63 MG/DL (0.60-1.30); GFR ESTIMATED > 60; GLUCOSE 110 MG/DL (70-105); POTASSIUM 3.8 MMOL/L (3.6-5.0); SODIUM 140 MMOL/L (135-145)
[2019-05-26 14:20] LABS: ALANINE AMINOTRANSFERASE 23 U/L (0-55); ALBUMIN 4.4 GM/DL (3.2-4.5); AMYLASE 27 U/L (25-125); LIPASE 23 U/L (8-78); TOTAL PROTEIN 7.5 GM/DL (6.4-8.2)
[2019-05-26 14:29] LABS: BAND NEUTROPHILS 2 %; BASOPHILS % (MANUAL) 0 %; EOSINOPHILS % (MANUAL) 1 %; LYMPHOCYTES % (MANUAL) 22 %; MONOCYTES % (MANUAL) 8 %; NEUTROPHILS % (MANUAL) 67 %
--- NOTE | 2019-05-26 14:50 | Diagnostic Imaging Report ---
PROCEDURE: CT abdomen and pelvis without contrast. TECHNIQUE: Multiple contiguous axial images were obtained through the abdomen and pelvis without the use of intravenous contrast. Auto Exposure Controls were utilized during the CT exam to meet ALARA standards for radiation dose reduction. All CT scans use one or more of the following dose optimizing techniques: automated exposure control, MA and/or KvP adjustment based on patient size and exam type or iterative reconstruction. INDICATION: Right-sided flank pain for two days. COMPARISON: Comparison is made with prior CT from 03/29/2019. FINDINGS: The lung bases are clear. Diffuse low density throughout the liver is again noted consistent with hepatic steatosis. Circumscribed low-density lesion in the left lobe is stable and most likely represents a cyst. Gallbladder is unremarkable. No biliary ductal dilatation is seen. The pancreas and spleen are unremarkable. No adrenal mass is detected. The renal cortical low densities in the upper pole appear stable. Nonobstructing calculus in right kidney measures 6 mm. No definite hydronephrosis is seen. No definite ureteral calculi are identified. Calcific densities in the pelvis likely represent phleboliths. There is an IUD in the uterus. No bladder calculi are seen. Aorta is non-aneurysmal. Bowel loops are normal caliber. There is no ascites. Previously noted findings of colitis have resolved since prior exam. IMPRESSION: 1. Hepatic steatosis. 2. Nonobstructing right renal calculus. No definite ureteral calculi or hydronephrosis is identified. 3. Resolution of previously noted findings of colitis since study from 03/29/2019. Dictated by: Dictated on workstation # [id number]
[2019-05-26] MEDS ORDERED: HYDR-4227 PO (15:26)
[2019-05-26] MEDS ORDERED: ONDA4TAB11 PO (15:26)
[2019-05-26 15:49] VITALS: BP 131/85
== END 2019-05-26 15:49 | disposition home or self-care (01) ==
LOC: EDUNIT# 13:06 → ER FS 13:08
DX: R10.11 Right upper quadrant pain (principal); D72.829 Elevated white blood cell count, unspecified; R11.2 Nausea with vomiting, unspecified; Z91.041 Radiographic dye allergy status; Z77.22 Contact with and (suspected) exposure to environmental tobacco smoke (acute) (chronic)
CPT/HCPCS: 36415; 74176; 80053; 82150; 83690; 84703; 85007; 85027; 96374; 96375; 96376

== ENCOUNTER 2019-11-23 05:31 | Outpatient (RCR) | payer MEDICAID ==
[~2019-11-23] VITALS: Ht 152 cm; Wt 79.5 kg
[~2019-11-23 05:31] MED LIST changes: +ALPR0.5T7 PO; +CITA40TA19 PO; +GABA300C PO; +HYDR-4227 PO; +ONDA4TAB11 PO; +PRAZ2CAP2 PO; +RT-ALBUINH IH; +SMTR50T PO
== END 2019-11-23 10:03 | disposition home or self-care (01) ==
LOC: PREOP 05:31
PROVIDERS: ATTEND Surgery
DX: Z01.812 Encounter for preprocedural laboratory examination (principal); R10.9 Unspecified abdominal pain; R19.7 Diarrhea, unspecified; Z20.828 Contact with and (suspected) exposure to other viral communicable diseases
CPT/HCPCS: 87635

== ENCOUNTER 2019-11-27 08:19 | Day surgery (SDC) | payer MEDICAID ==
[~2019-11-27] VITALS: Ht 152.4 cm; Wt 79.5 kg
[2019-11-27] MEDS ORDERED: LACTATED RINGERS 1,000 ML IV STA (08:26)
[2019-11-27] MEDS ORDERED: LACTATED RINGERS 1,000 ML IV ONE (08:27)
[2019-11-27] MEDS ORDERED: PROPOFOL INJECTION 50 ML IV ONE ×2 (08:29→09:01)
[2019-11-27] MEDS ORDERED: MIDAZOLAM 2 MG/2 ML (VERSED) VIAL ONE (08:29)
--- OUTSIDE RECORDS SUMMARY | 2019-11-27 08:29 | XMS REPORT ---
Author Author Shayla Kari Doctor Organization [facility] Address Unknown Phone Unavailable Care Team Providers Care Product Manager Name Role Phone Migration, Doctor Unavailable Unavailable PROBLEMS Type Condition ICD9-CM Code ECT70-XJ Code Onset Dates Condition S tatus SNOMED Code Problem Unspecified episodic mood disorder F39 Active 903705497 Problem Anxiety F41.9 Active 38259461 Problem 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 Active 750003189 Problem Cigarette nicotine dependence without complication F17.210 Active 75283483 Problem Asthma, unspecified asthma s everity, unspecified whether complicated, unspecified whether persistent J45.909 Active 693044770 Problem 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 Active 162697642 Problem Migraine G43.909 Active 33494285 Problem Irregular menses N92.6 Active 801 08940 Problem Obesity (BMI 30-39.9) E66.9 Active 626147437 ALLERGIES No Information ENCOUNTERS Encounter Location Date Diagnosis [facility] [address] [facility] [id number] [address] [place] [phone] Oct, [address] [id number] [address] Oct, [address] [id number], [place] [address] Oct, Lumbar pain with radiation d own both legs M54.5 and Asthma, unspecified asthma severity, unspecified whether complicated, unspecified whether persistent J45.909 [facility] [address] [facility] [id number] [address] [place] [address] August, [address] [id number], [place] [address] Jul, Colitis K52.[address] [id number], [place] [address] Jul, [facility] [id number] [address] Jun, Abdominal cramping R10.9 and Diarrhea, unspecified type R19.7 [facility] [id number] [place] [address] Apr, Right flank pain R10.9 [facility] D[address] [id number], [place] [address] Mar, Colitis K52.9 [facility] DAN[place] [address] [id number], [place] [address] Mar, Colitis K52.9 [facility] DANII [address] [id number], [place] [address] Mar, [facility] [place] [id number] [id number] [place] [address] Mar, [facility] [address] [id number], [place] [address] Feb, [facility] [address] [id number], [place] [address] Feb, Migraine headache G43.909 an d Acute pain of right shoulder M25.511 [facility] [place] [id number] [id number] [place] [address] Jan, Intractable migraine without aura and with status migrainosus G43.011 ; Urgency of urination R39.15 and Irregular menses N92.6 [facility] [address] [facility] [id number] [address] [place] [address] Sep, Encounter for IUD removal Z3 0.432 [facility] [address] [facility] [id number] [address] [place] [address] August, [facility] [address] [facility] [id number] [address] [place] [address] Jul, [facility] [address] [id number] [address] [place] [address] Jul, [facility] [address] [id number] [address] [place] [address] Jul, Epigastric abdominal pain R1 0.13 [facility] [address] [id number] [address] [place] [address] Jul, [facility] [address] [id number] [address] [place] [address] Jul, [facility] [address] [id number] [address] [place] [address] Nov, [facility] [address] [id number] [address] [place] [address] Sep, [facility] [address] [id number] [address] [place] [address] August, [facility] [address] [id number] [address] [place] [address] Jun, [facility] [address] [id number] [address] [place] [address] May, [facility] [address] [id number] [address] [place] [address] Oct, IMMUNIZATIONS No Known Immunizations SOCIAL HISTORY Never Assessed REASON FOR VISIT PLAN OF CARE VITAL SIGNS Height 60.25 in 2012-07-07 Weight 149 lbs 2012-07-07 Heart Rate 88 bpm 2012-07-07 Respiratory Rate 20 2012-07-07 Blood pressure systolic 104 mmHg 2012-07-07 Blood pressure diastolic 84 mmHg 2012-07-07 MEDICATIONS Unknown Medications RESULTS No Results PROCEDURES Procedure Date Ordered Result Body Site PSYCH DIAG EVAL W/MED SRVCS July 07, 2012 INSTRUCTIONS MEDICATIONS ADMINISTERED No Known Medications MEDICAL (GENERAL) HISTORY Type Description Date Medical History Depression Medical History Anxiety Medical History Kidney stones Medical History Unspecified episodic mood disorder Medical History Encounter for long-term (current) use of medications Surgical History D&C Hospitalization History childbirth only
--- OUTSIDE RECORDS SUMMARY | 2019-11-27 08:29 | XMS REPORT ---
Author Author Kari Mcguire Doctor Organization [facility] Address Unknown Phone Unavailable Care Team Providers Care Client Services Vice President Name Role Phone Migration, Doctor Unavailable Unavailable PROBLEMS Type Condition ICD9-CM Code ETW14-DM Code Onset Dates Condition S tatus SNOMED Code Problem Unspecified episodic mood disorder F39 Active 581871763 Problem Depression F32.9 Active 109787118 Problem Anxiety F41.9 Active 88109990 Problem Cigarette nicotine dependence without complication F17.210 Active 16649786 Problem Encounter for long-term (current) use of medications Z79.899 Active 264647668 Problem Obesity (BMI 30-39.9) E66.9 Active 316399503 Problem Kidney stones N20.0 Active 373432 07 Problem Migraine G43.909 Active 23812210 Problem Irregular menses N92.6 Active 801 02351 Problem 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 Active 196699221 Problem 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 Active 285336199 ALLERGIES No Information ENCOUNTERS Encounter Location Date Diagnosis [address] [id number] [address] Oct, [facility] [address] [facility] [id number] 100[place] [address] August, [address] [id number] [address] Jul, Colitis K52.[address] 340[address] [id number] [address] 09 Jul, 2019 [facility] [address] 340 [id number] [place] [address] Jun, Abdominal cramping R10.9 and Diarrhea, unspecified type R19.7 [facility] [address] 340 [id number] [address] Apr, Right flank pain R10.9 [facility] DANII MAZARIEGOS [address] [id number] [place] [address] Mar, Colitis K52.[address] [facility] MAZARIEGOS [address] 340[address] [id number] [place] [address] Mar, Colitis K52.9 [facility] DANII MAZARIEGOS [address] 340[address] [id number] [place] [address] Mar, [facility] [address] 340 [id number] [place] [address] Mar, [facility] DANII MAZARIEGOS [address] 340[address] [id number] [place] [address] Feb, [facility] DANII MAZARIEGOS [address] 340B [id number] [place] [address] Feb, Migraine headache G43.909 an d Acute pain of right shoulder M25.[address] [facility] [address] 340 [id number] [place] [address] Jan, Intractable migraine without aura and with status migrainosus G43.011 ; Urgency of urination R39.15 and Irregular menses N92.6 [place] [address] [place] [address] Sep, Encounter for IUD removal Z3 0.432 [place] [address] [place] [address] August, [facility] [address] [place] [id number] [address] [place] [address] Jul, [facility] [address] [place] [id number] [address] [place] [address] Jul, [facility] [address] [place] [id number] [address] [place] [address] Jul, Epigastric abdominal pain R1 0.13 [place] [address] [place] [address] 14 Jul, 2014 [facility] [address] [id number] [address] [place] [address] Jul, [facility] [address] [id number] [address] [place] [address] Nov, [facility] [address] [id number] [address] [place] [address] Sep, [facility] [address] [id number] [address] [place] [address] August, [facility] [address] [facility] [id number] [address] [place] [address] Jun, [facility] [address] [facility] [id number] [address] [place] [address] May, [facility] [address] [facility] [id number] [address] [place] [address] Oct, IMMUNIZATIONS No Known Immunizations SOCIAL HISTORY Never Assessed REASON FOR VISIT PLAN OF CARE VITAL SIGNS Height 60.25 in 2012-10-11 Weight 146 lbs 2012-10-11 Temperature 98.9 degrees Fahrenheit 2012-10-11 Heart Rate 78 bpm 2012-10-11 Respiratory Rate 22 2012-10-11 Blood pressure systolic 104 mmHg 2012-10-11 Blood pressure diastolic 60 mmHg 2012-10-11 MEDICATIONS Unknown Medications RESULTS No Results PROCEDURES No Known procedures INSTRUCTIONS MEDICATIONS ADMINISTERED No Known Medications MEDICAL (GENERAL) HISTORY Type Description Date Medical History Depression Medical History Anxiety Medical History Kidney stones Medical History Unspecified episodic mood disorder Medical History Encounter for long-term (current) use of medications Hospitalization History childbirth only
--- OUTSIDE RECORDS SUMMARY | 2019-11-27 08:29 | XMS REPORT ---
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 Active 344793865 Problem Cigarette nicotine dependence without complication F17.210 Active 93590979 Problem Asthma, unspecified asthma s everity, unspecified whether complicated, unspecified whether persistent J45.909 Active 576905151 Problem 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 Active 683481661 Problem Migraine G43.909 Active 26239683 Problem Irregular menses N92.6 Active 801 57632 Problem Obesity (BMI 30-39.9) E66.9 Active 982636978 ALLERGIES No Information ENCOUNTERS Encounter Location Date Diagnosis [address] 340[address] [id number] [address] Oct, [address] [id number] [address] Oct, [address] [id number] [place] [address] Oct, Lumbar pain with radiation d own both legs M54.5 and Asthma, unspecified asthma severity, unspecified whether complicated, unspecified whether persistent J45.909 [facility] [address] [facility] [id number] 100[place] [address] August, [address] 340[address] [id number] [address] Jul, Colitis K52.[address] 340[address] [id number] [place] [address] Jul, [facility] IN [facility] [address] 340 [id number] [place] [address] Jun, Abdominal cramping R10.9 and Diarrhea, unspecified type R19.7 [facility] WALK IN [facility] [address] 340 [id number] [place] [address] Apr, Right flank pain R10.9 [facility] DANII [address] 340[address] [id number] [place] [address] Mar, Colitis K52.9 [facility] DANII [address] 340[address] [id number] [place] [address] Mar, Colitis K52.9 [facility] DANII [address] 340[address] [id number] [place] [address] Mar, [facility] [place] [address] [id number] [place] [address] Mar, [facility] [address] 340[address] [id number] [place] [address] Feb, [facility] [address] 340[address] [id number] [address] Feb, Migraine headache G43.909 an d Acute pain of right shoulder M25.[address] [address] [place] [address] [id number] [place] [address] Jan, Intractable migraine without aura and with status migrainosus G43.011 ; Urgency of urination R39.15 and Irregular menses N92.6 [facility] [address] [facility] [id number] [address] [place] [address] Sep, Encounter for IUD removal Z3 0.432 [facility] [address] [facility] [id number] [address] [place] [address] August, [facility] [address] [facility] [id number] [address] [place] [address] Jul, [facility] [address] [id number] [address] [place] [address] Jul, [facility] [address] [id number] [address] [place] [address] Jul, Epigastric abdominal pain R1 0.13 [facility] [address] [id number] [address] [place] [address] Jul, [facility] [address] [id number] [address] [place] [address] Jul, [facility] [address] [id number] [address] [place] [address] Nov, [facility] [address] [id number] [address] [place] [address] Sep, [facility] [address] [id number] [address] [place] [address] August, [facility] [address] [id number] [address] [place] [address] Jun, [facility] [address] [id number] [address] [place] [address] May, [facility] [address] [id number] [address] [place] [address] Oct, IMMUNIZATIONS No Known Immunizations SOCIAL HISTORY [...]
--- OUTSIDE RECORDS SUMMARY | 2019-11-27 08:29 | XMS REPORT | Continuity of Care Document ---
Author Organization Unknown Address Unknown Phone Unavailable Allergies Active Description Code Type Severity Reaction Onset Reported/Identified Relationship to Patient Clinical Status Yes Codeine Drug Allergy N/A N/A 07/07/2012 Yes Hydrocodone Drug Allergy N/A N/A 07/07/2012 Yes Codeine Drug Allergy 07/07/2012 Yes Hydrocodone Drug Allergy 07/07/2012 Yes No Known Drug Allergies [id number] Drug Allergy Unknown N/A 09/14/2018 Yes Iodinated Contrast Media [id number] Drug Allergy Mild VOMITING 11/21/2019 Medications Medication Packaging Start Date St op Date Route Dosage Sig Alprazolam MG 12/1712/18/2015 0.5 QID Topiramate MG 12/1712/18/2015 25 BID Oxycodone 5 MG W/Actm 325 MG TAB 12/18/2015 12/17/2016 1 Q4H PRN MEDICATION RECONCILIATION E ACH 12/18/2015 12/18/2015 1 ONE Citalopram Hydrobromide MG [...] NOS 07/07/2012 V58.69 MED ICATION HIGH RISK 2015 Tonia Louie DO F17.200 Nicotine dependence, unspecified, uncomplicated Tonia Louie DO 2015 Tonia Louie DO F4 1.9 Anxiety disorder, unspecified Louie DO, Tonia R 2015 Tonia Louie DO F N2 0.1 Calculus of ureter Tonia Louie DO 2015 Tonia Louie DO F 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 Tonia nova DO 09/14/2018 SOLOMON GARCIA, DONG K Ot F17.210 NICOTINE DEPENDENCE, CIGARETTES, UNCOMPL 09/14/2018 SOLOMON GARCIA, DONG K Ot F32.9 MAJOR DEPRESSIVE DISORDER, SINGLE EPISOD 09/14/2018 SOLOMON GARCIA, DONG K Ot F41.9 ANXIETY DISORDER, UNSPECIFIED 09/14/2018 SOLOMON GARCIA, DONG K Ot M25.512 PAIN IN LEFT SHOULDER 09/14/2018 SOLOMON GARCIA, DONG K Ot M79.18 MYALGIA, OTHER SITE 09/16/2018 JUSTINE CARBAJAL DOA K Ot F17.210 NICOTINE DEPENDENCE, CIGARETTES, UNCOMPL 09/16/2018 SOLOMON GARCIA DONG K Ot F32.9 MAJOR DEPRESSIVE DISORDER, SINGLE EPISOD 09/16/2018 SOLOMON , DONG K Ot F41.9 ANXIETY DISORDER, UNSPECIFIED 09/16/2018 SOLOMON , DONG K Ot M25.512 PAIN IN LEFT SHOULDER 09/16/2018 SOLOMON GARCIA, DONG K Ot M79.18 MYALGIA, OTHER SITE 12/04/2018 TONIA DARBY MD Ot E86.0 DEHYDRATION 12/04/2018 TONIA DARBY MD Ot F32.9 MAJOR DEPRESSIVE DISORDER, SINGLE EPISOD 12/04/2018 TONIA DARBY MD Ot F41.0 PANIC DISORDER [EPISODIC PAROXYSMAL ANXI 12/04/2018 TONIA DARBY MD Ot Z77.22 CNTCT W AND EXPSR TO ENVIRON TOBACCO SMO 12/04/2018 TONIA DARBY MD Ot 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 12/08/2018 TONIA DARBY MD Ot E86.0 DEHYDRATION 12/08/2018 TONIA DARBY MD Ot F32.9 MAJOR DEPRESSIVE DISORDER, SINGLE EPISOD 12/08/2018 TONIA DARBY MD Ot F41.0 PANIC DISORDER [EPISODIC PAROXYSMAL ANXI 12/08/2018 TONIA DARBY MD Ot Z77.22 CNTCT W AND EXPSR TO ENVIRON TOBACCO SMO 12/08/2018 MEHNAZ FRANCO, TONIA Gatica Ot Z79.52 ALF (CURRENT) USE OF SYSTEMIC STER 03/29/2019 GARRETT [...] AND EXPSR TO ENVIRON TOBACCO SMO 03/29/2019 GARRETT OLVERA MD Ot Z91.041 RADIOGRAPHIC DYE ALLERGY STATUS 04/03/2019 GARRETT OLVERA MD, Ot F32.9 MAJOR DEPRESSIVE DISORDER, SINGLE EPISOD 04/03/2019 GARRETT OLVERA MD, Ot F41.9 ANXIETY DISORDER, UNSPECIFIED 04/03/2019 GARRETT OLVERA MD, Ot K52.9 NONINFECTIVE GASTROENTERITIS AND COLITIS 04/03/2019 GARRETT OLVERA MD Ot K92.1 MELENA 04/03/2019 GARRETT OLVERA MD Ot N39.0 URINARY TRACT INFECTION, SITE NOT SPECIF 04/03/2019 GARRETT OLVERA MD Ot Z77.22 CNTCT W AND EXPSR TO ENVIRON TOBACCO SMO 04/03/2019 GARRETT OLVERA MD Ot Z91.041 RADIOGRAPHIC DYE ALLERGY STATUS Procedures Code Description [place] [address] [facility] H DIA EVAL W/MED SRVCS 07/11/2012 Results Test Result Range CBC WITH MANUAL DIFFERENTIAL - 12/18/15 09:50 HEMOGLOBIN 15.2 g/dl 12.0-16.0 PLATELET COUNT 314 10 3/uL 130-400 WHITE BLOOD CELL COUNT 17.3 10 3/uL 4.5- 11.0 RED BLOOD CELL 4.96 10 6/uL 3.50-5.40 HEMATOCRIT 44.9 % 36-48 MEAN CORPUSCULAR VOLUME 90.7 fL 79-99 MEAN CORPUSCULAR HEMOGLOBIN 30.7 pg 25 .0-34.0 MEAN CELL HEMOGLOBIN CONC. 33.9 g/dL 31. 0-36.0 RED CELL DISTRIBUTION WIDTH 13.2 % 11 .0-15.0 MEAN PLATELET VOLUME 8.8 fL 7.0-11.0 CBC WITH MANUAL DIFFERENTIAL - 12/18/15 09:50 ABSOLUTE NEUTROPHIL COUNT 12.3 # 1.0- 8.0 HEMOGLOBIN 15.2 g/dl 12.0-16.0 PLATELET COUNT 314 10 3/uL 130-400 WHITE BLOOD CELL COUNT 17.3 10 3/uL 4.5- 11.0 LYMPHOCYTE# 3.8 # 1.0-3.0 MONOCYTE# 0.9 # 0.0-1.0 EOSINOPHIL# 0.0 # 0.0-0.4 BASOPHIL# 0.0 # 0.0-0.2 SEGS 66 % 50-65 BANDS 5 % 0-10 LYMPHS 22 % 15-45 MONOS 5 % 0-10 ATYP LYMPHS 2 % 0-5 RED BLOOD CELL 4.96 10 6/uL 3.50-5.40 HEMATOCRIT 44.9 % 36-48 MEAN CORPUSCULAR VOLUME 90.7 fL 79-99 MEAN CORPUSCULAR HEMOGLOBIN 30.7 pg 25 .0-34.0 MEAN CELL HEMOGLOBIN CONC. 33.9 g/dL 31. 0-36.0 RED CELL DISTRIBUTION WIDTH 13.2 % 11 .0-15.0 MEAN PLATELET VOLUME 8.8 fL 7.0-11.0 COMP [...] Negative URINE WITH MICRO-CULT IND. - 12/18/15 13 :08 APPEARANCE Sl Cloudy Clear GLUCOSE Negative Negative [...] CULTURE INDICATED CFU/ML URINE CULTURE INDICATED CFU/ML Complete blood count (CBC) with automate d [...] NRG Blood erythrocyte morphology finding identification NORMAL NRG Comprehensive metabolic panel - 03/29/19 13:45 Serum [...] 7-25 CREATININE 0.74 mg/dL 0.50-1.10 eGFR NON-AFR. [place] 105 mL/min/1.73m2 > OR = 60 eGFR [...] 140-400 MPV 10.4 fL 7.5-12.5 ABSOLUTE NEUTROPHILS 14934 cells/uL 1500 -7800 ABSOLUTE LYMPHOCYTES 3776 cells/uL 850-3 900 ABSOLUTE MONOCYTES 1201 cells/uL 200-950 ABSOLUTE EOSINOPHILS 300 cells/uL 15-500 ABSOLUTE BASOPHILS 111 cells/uL 0-200 NEUTROPHILS 65.9 % NRG LYMPHOCYTES 23.9 % NRG MONOCYTES 7.6 % NRG EOSINOPHILS 1.9 % NRG BASOPHILS 0.7 % NRG AMYLASE - 05/25/19 11:26 AMYLASE 21 U/L 21-101 Complete blood count (CBC) with automate d white blood cell (WBC) differential - 05/26/19 13:15 Blood leukocytes automated count (number/volume) 16.4 10*3/uL 4.3-11.0 Blood erythrocytes automated count (number/volume) 4.84 10*6/uL 4.35-5.85 Venous blood hemoglobin measurement (mass/volume) 15.1 g/dL 11.5-16.0 Blood hematocrit (volume fraction) 44 % 35-52 Automated erythrocyte mean corpuscular volume 92 [ foz_us] 80-99 Automated erythrocyte mean corpuscular h emoglobin (mass per erythrocyte) 31 pg 25-34 Automated erythrocyte mean corpuscular h emoglobin concentration measurement (mass/volume) 34 g/dL 32-36 Automated erythrocyte distribution width ratio 13. 0 % 10.0- 14.5 Automated blood platelet count (count/volume) 487 10*3/uL 130-400 Automated blood platelet mean volume measurement 10.1 [foz_us] 7.4-10.4 Automated blood neutrophils/100 leukocytes 68 % 42-75 Automated blood lymphocytes/100 leukocytes 23 % 12-44 Blood monocytes/100 leukocytes 7 % 0-12 Automated blood eosinophils/100 leukocytes 1 % 0-10 Automated blood basophils/100 leukocytes 1 % 0-10 Blood neutrophils automated count (number/volume) 11.2 10*3 1.8-7.8 Blood lymphocytes automated count (number/volume) 3.8 10*3 1.0-4.0 Blood monocytes automated count (number/volume) 1. 1 10*3 0.0-1.0 Automated eosinophil count 0.2 10*3/uL 0 .0-0.3 Automated blood basophil count (count/volume) 0.1 10*3/uL 0.0-0.1 Serum or plasma choriogonadotropin (preg marivel test) detection - 05/26/19 13:15 Serum or plasma choriogonadotropin ( test) de tection NEGATIVE NEGATIVE Comprehensive metabolic panel - 05/26/19 13:15 Serum or plasma sodium measurement (moles/volume) 140 mmol/L 135-145 Serum or plasma potassium measurement (moles/volume) 3.8 mmol/L 3.6-5.0 Serum or plasma chloride measurement (moles/volume) 104 mmol/L 98-107 Carbon dioxide 22 mmol/L 21-32 Serum or plasma anion gap determination (moles/volume) 14 mmol/L 5-14 Serum or plasma urea nitrogen measurement (mass/volume ) 10 mg/dL 7-18 Serum or plasma creatinine measurement (mass/volume) 0.63 mg/dL 0.60-1.30 Serum or plasma urea nitrogen/creatinine mass ratio 16 NRG Serum or plasma creatinine measurement w ith calculation of estimated glomerular filtration rate > NRG Serum or plasma glucose measurement (mass/volume) 110 mg/dL 70-105 Serum or plasma calcium measurement (mass/volume) 9.2 mg/dL 8.5-10.1 Serum or plasma total bilirubin measurement (mass/volu me) 0.3 mg/dL 0.1-1.0 Serum or plasma alkaline phosphatase nick surement (enzymatic activity/volume) 79 U/L 40-136 Serum or plasma aspartate aminotransfera se measurement (enzymatic activity/volume) 13 U/L 5-34 Serum or plasma alanine aminotransferase measurement (enzymatic activity/volume) 23 U/L 0-55 Serum or plasma protein measurement (mass/volume) 7.5 g/dL 6.4-8.2 Serum or plasma albumin measurement (mass/volume) 4.4 g/dL 3.2-4.5 CALCIUM CORRECTED 8.9 mg/dL 8.5-10.1 Serum or plasma amylase measurement (enz ymatic activity/volume) - 05/26/19 13:15 Serum or plasma amylase measurement (enzymatic activit y/volume) 27 U/L 25-125 Lipase - 05/26/19 13:15 Lipase 23 U/L 8-78 Manual absolute plasma cell count - 04/28 05/15 13:15 Blood monocytes/100 leukocytes 8 % NRG Manual blood segmented neutrophils/100 leukocytes 67 % NRG Blood band neutrophils/100 leukocytes 2 % NRG Manual blood lymphocytes/100 leukocytes 22 % NRG Manual eosinophils/100 leukocytes in nose 1 % NRG Manual blood basophils/100 leukocytes 0 % NRG CMP - 07/24/19 11:47 GLUCOSE 63 mg/dL 65-99 UREA NITROGEN (BUN) 10 mg/dL 7-25 CREATININE 0.65 mg/dL 0.50-1.10 eGFR NON-AFR. [place] 115 mL/min/1.73m2 > OR = 60 eGFR 133 mL/min/1.73m2 > OR = 60 BUN/CREATININE RATIO NOT APPLICABLE (calc) 6-22 SODIUM 139 mmol/L 135-146 POTASSIUM 4.1 mmol/L 3.5-5.3 CHLORIDE 108 mmol/L 98-110 CARBON DIOXIDE 25 mmol/L 20-32 CALCIUM 8.6 mg/dL 8.6-10.2 PROTEIN, TOTAL 6.0 g/dL 6.1-8.1 ALBUMIN 3.8 g/dL 3.6-5.1 GLOBULIN 2.2 g/dL (calc) 1.9-3.7 ALBUMIN/GLOBULIN RATIO 1.7 (calc) 1.0-2. 5 BILIRUBIN, TOTAL 0.4 mg/dL 0.2-1.2 ALKALINE PHOSPHATASE 66 U/L 31-125 AST 11 U/L 10-30 ALT 19 U/L 6-29 CBC - 07/24/19 11:47 WHITE BLOOD CELL COUNT 12.3 Thousand/uL 3.8-10.8 RED BLOOD CELL COUNT 4.76 Million/uL 3.8 0-5.10 HEMOGLOBIN 14.5 g/dL 11.7-15.5 HEMATOCRIT 43.6 % 35.0-45.0 MCV 91.6 fL 80.0-100.0 MCH 30.5 pg 27.0-33.0 MCHC 33.3 g/dL 32.0-36.0 RDW 12.7 % 11.0-15.0 PLATELET COUNT 413 Thousand/uL 140-400 MPV 10.5 fL 7.5-12.5 ABSOLUTE NEUTROPHILS 7552 cells/uL 1500- 7800 ABSOLUTE LYMPHOCYTES 3346 cells/uL 850-3 900 ABSOLUTE MONOCYTES 1033 cells/uL 200-950 ABSOLUTE EOSINOPHILS 258 cells/uL 15-500 ABSOLUTE BASOPHILS 111 cells/uL 0-200 NEUTROPHILS 61.4 % NRG LYMPHOCYTES 27.2 % NRG MONOCYTES 8.4 % NRG EOSINOPHILS 2.1 % NRG BASOPHILS 0.9 % NRG Coronavirus SARS-CoV-2 SO 2018 0 08:50 Coronavirus Ab [Units/volume] in Serum NOT DETECTE D Not Detecte Encounters ACCT No. Visit Date/Time Discharge Status Pt. Type Provider Facility Loc./Unit Complaint [id number] 10/25/2019 09:15:00 10/25/2019 23:59:5 9 [facility] Outpatient SELF, LEWIS Sanderson [facility] [id number] 07/24/2019 10:00:00 Document Registration [id number] 05/25/2019 09:30:00 Document Registration [id number] 04/05/2019 11:15:00 Document Registration [id number] 02/21/2019 16:20:00 Document Registration [id number] 07/07/2012 07:58:00 07/07/2012 23:59: 59 [facility] Outpatient [id number] 09/20/2009 13:32:00 09/20/2009 23:59: 59 [facility] Outpatient [id number] 10/11/2012 12:30:00 Document Registration [id number] 07/07/2012 07:58:00 Document Registration [id number] 11/23/2019 05:31:00 10:03:00 DIS Outpatient KILEY EUGENE DO [facility] PREOP ABDOMINAL PAIN,DIARRHEA [id number] 05/26/2019 13:08:00 15:49:00 DIS Emergency LIANG MAGALLANES DO [facility] ER FS TROUBLE BREATHING [id number] 04/05/2019 11:49:00 23:59:59 CLS Outpatient LEWIS MCCOY MD [facility] RAD FS K52.9 [id number] 03/29/2019 13:08:00 17:58:00 DIS Emergency GARRETT OLVERA MD [facility] ER FS BLOODY DIARHEA [id number] 12/03/2018 23:19:00 01:10:00 DIS Emergency MEHNAZ FRANCO, TONIA brown [facility] ER FS SOB [id number] 09/14/2018 05:30:00 05:52:00 DIS Emergency DONG CARBAJAL DO [facility] ER LEFT SHOULDER PAIN [id number] 11/27/2019 09:10:00 P EN Preadmit KILEY EUGENE DO [facility] ENDO ABDOMINAL PAIN,DIARRHEA [id number] 12/18/2015 09:37:00 13:35:00 DIS Emergency Tonia Louie DO [facility] ED
[2019-11-27] MEDS ORDERED: HURRICAINE EXT TUBE (BENZOCAINE) XX PRN (08:30)
--- NOTE | 2019-11-27 08:38 | Progress Note-Pre Operative ---
Pre-Operative Progress Note H&P Reviewed The H&P was reviewed, patient examined and no changes noted. Time Seen by Provider: 08:35 Date H&P Reviewed: Nov 27, 2019 Time H&P Reviewed: 08:36 Pre-Operative Diagnosis: Abd pain, Gastritis, Rectal bleed, Colitis, Diarrhea KILEY EUGENE DO Nov 27, 2019 08:38
[2019-11-27 08:42] VITALS: BP 110/79
--- NOTE | 2019-11-27 09:23 | Progress Note-Post Operative ---
Post-Operative Progess Note Surgeon (s)/Oracle R12 Developer (s) Surgeon KILEY EUGENE DO [employer] R12 Developer: Israel Worthington MSIII Pre-Operative Diagnosis Abd pain, Gastritis, Rectal bleed, Colitis, Diarrhea Post-Operative Diagnosis Gastritis Hiatal hernia Polyp Int hemorrhoids Procedure & Operative Findings Date of Procedure 11/27/19 Procedure Performed/Findings EGD with bx Colon with hot bx Anesthesia Type IV sedation by CLINIC CHARGE NURSE Estimated Blood Loss Estimated blood loss (mL): scant Specimens/Packing Specimens Removed antral bx body of stomach bx GE jxn bx Sigmoid polyp KILEY EUGENE DO Nov 27, 2019 09:23
--- NOTE | 2019-11-27 09:25 | Endoscopy Discharge Instruct ---
Endo Procedure/Findings Findings 1.: Gastritis 2.: Hiatal Hernia 3.: Polyp 4.: Internal Hemorrhoids Discharge Instructions - Activity: You might feel a little sleepy until tomorrow. This is due to the medicine you received to relax you. Until tomorrow, you should: NOT drive a car, operate machinery or power tools. NOT drink any alcoholic beverages. NOT make any important decisions or sign importortant papers. Do not return to work until tomorrow, unless otherwise instructed. Resume previous activities tomorrow. Diet: Start by taking liquids. If you tolerate liquids, advance to solid food. make appt for one week 1.: Colonscopy in 5 years, EGD in 3 years Notify Physician - If you experience excessive bleeding, unusual abdominal pain, fever, or chest pain, contact your doctor immediately. KILEY EUGENE DO Nov 27, 2019 09:25
[2019-11-27 09:31] VITALS: BP 115/80
[2019-11-27 09:35] VITALS: BP 115/80
[2019-11-27] MEDS ORDERED: fentaNYL INJECTION 100 MCG/2 ML AMP ONE (09:38)
--- NOTE | 2019-11-27 09:43 | Anesthesia-General Post-Op ---
MAC Patient Condition Mental Status/LOC: Same as Preop Cardiovascular: Satisfactory Nausea/Vomiting: Absent Respiratory: Satisfactory Pain: Controlled Complications: Absent Post Op Complications Complications None Follow Up Care/Instructions Patient Instructions None needed. Anesthesiology Discharge Order Discharge Order Patient is doing well, no complaints, stable vital signs, no apparent adverse anesthesia problems. No complications reported per nursing. OSORIO MANZANO CRNA Nov 27, 2019 09:43
[2019-11-27] MEDS ORDERED: fentaNYL INJECTION 100 MCG/2 ML AMP IVP ONE (09:45)
[2019-11-27 10:05] VITALS: BP 110/77
[2019-11-27 10:28] VITALS: BP 110/77
--- NOTE | 2019-11-28 07:35 | OPERATIVE REPORT ---
DATE OF SERVICE: PREOPERATIVE DIAGNOSES: Gastritis, rectal bleed, diarrhea. POSTOPERATIVE DIAGNOSES: Gastritis, hiatal hernia, polyp, internal hemorrhoids. PROCEDURE: 1. EGD with biopsy. 2. Colonoscopy with hot biopsy. SURGEON: Fox Leon DO MUFFLER HAND: Israel Worthington, MS3 ANESTHESIA: IV sedation by the WRAPPER HAND. SPECIMEN: Biopsy from the antrum, biopsy of body of stomach, biopsy of the GE junction and one sigmoid biopsy. BLOOD LOSS: Scant. FLUIDS: Per anesthesia. POSTOPERATIVE CONDITION: Stable. INDICATION FOR PROCEDURE: The patient is a 33-year-old female who has been having some gastritis, rectal bleeding, diarrhea, needed a workup. FINDINGS: The patient had what looked like blood in her stomach and some gastritis. She had a small hiatal hernia and then in the colon, she had a polyp in the sigmoid and she had some internal hemorrhoids. PROCEDURE NOTE: After informed consent was obtained, the patient was brought to the endoscopy suite, placed in bed in left lateral decubitus position. She was administered IV sedation by the WRAPPER HAND who then monitored her vitals the entire time, heart rate, blood pressure and pulse ox and we started with the EGD, placing scope down the mouth through the esophagus into the stomach. On the way into the stomach, noted what looked like blood, took a picture of this, got into the duodenum through the antrum, looked normal, took a picture. Pulled the scope back and then did a biopsy of the antrum. Retroflexed the scope, saw hiatal hernia, took a picture and then did a biopsy of body of stomach, pulled the scope into the GE junction, did a biopsy of the GE junction, then pushed the scope back into the stomach, suctioned out all the air and then pulled the scope up the esophagus and out the mouth. Switched camera, switched gloves, went down below, started the colonoscopy. Pushed all the way into about 150 cm, able to get to the cecum, took a picture of appendiceal orifice, noted the ileocecal valve and then slowly withdrew the scope insufflating to look circumferential at the agarwal looking at the cecum, up the ascending colon to the hepatic flexure, then down the transverse colon, splenic flexure, into the descending colon and into the sigmoid. In the sigmoid, saw small flat polyp, I elected to do a hot biopsy of this, removed it completely, then continued down into the rectum, retroflexed in the rectal vault, saw some minimal internal hemorrhoids, took a picture and then removed the scope. The patient tolerated the procedure. She was recovered in endoscopy suite. Job ID: [id number] DocumentID: [id number] Dictated Date: 11/27/2019 19:09:20 Juice Tester Date: 11/28/2019 06:20:44 Dictated By: FOX LEON DO
== END 2019-11-27 10:28 | disposition home or self-care (01) ==
LOC: ENDO 08:19
PROVIDERS: ATTEND Surgery
DX: K29.50 Unspecified chronic gastritis without bleeding (principal); K44.9 Diaphragmatic hernia without obstruction or gangrene; K63.5 Polyp of colon; K64.8 Other hemorrhoids; K31.9 Disease of stomach and duodenum, unspecified; K21.0 Gastro-esophageal reflux disease with esophagitis; F41.9 Anxiety disorder, unspecified; F17.210 Nicotine dependence, cigarettes, uncomplicated; G62.9 Polyneuropathy, unspecified; F31.89 Other bipolar disorder; Z79.899 Other long term (current) drug therapy
CPT/HCPCS: 84703; 87015; 87045; 87046; 87328; 87329; 87899; 88305

== ENCOUNTER → 2020-07-19 | Outpatient (CLI) | payer MEDICAID ==
[~2020-07-19] MED LIST changes: -CIPR500T4 PO; +CIPR500T5 PO
--- NOTE | 2020-07-19 15:34 | Diagnostic Imaging Report ---
PROCEDURE: MRI lumbar spine. TECHNIQUE: Multiplanar, multisequence MRI of the lumbar spine was performed without contrast. INDICATION: Severe back pain of one year's duration radiating down the left leg. COMPARISON: No previous for direct comparison study. It is correlated with abdominopelvic CT of 05/26/2019. FINDINGS: Lumbar vertebral statures are normal. The marrow signal intensity is normal. The alignment is anatomic. The conus appears normal. There is normal dispersal of the nerves of the cauda equina. There is no paravertebral mass, hemorrhage or fluid collection. The ligamentous structures appear intact. The lumbar spinal canal, itself, is widely patent at each vertebral body and disc space levels. The pedicles and pars intact. There is no acute or chronic fracture. There is a focal broad-based left paramedian disc bulge and protrusion at L4-L5. This indents the left ventral thecal sac and results in no substantial degree of canal stenosis. It mildly narrows the proximal left neural foramen. Lateral recesses unobstructed. No high-grade canal foraminal or recess stenosis is found. IMPRESSION: Left paramedian disc L4-L5 with mild left foraminal stenosis. Normal alignment. No acute or chronic fracture. No high-grade canal or foraminal stenosis. No acute appearing pathology. Dictated by: Dictated on workstation # [id number]
== END ==
LOC: RAD 13:38
PROVIDERS: ATTEND Family Medicine
DX: M48.061 Spinal stenosis, lumbar region without neurogenic claudication (principal); M51.36 Other intervertebral disc degeneration, lumbar region
CPT/HCPCS: 72148